=== PATIENT | male | born 1945 | race Caucasian/White ===

== ENCOUNTER 2018-12-21 13:29 | Inpatient (IN) | payer MEDICARE, MEDICAID ==
[~2018-12-21] VITALS: Ht 182.9 cm; Wt 90.1 kg
[2018-12-21 17:49] VITALS: BP 130/90
--- NOTE | 2018-12-21 18:00 | NUR ---
CORPORATE COMMUNICATIONS SPECIALIST NOTES PATIENT DIRECT ADMIT FROM Dr ROBB OFFICE 73 Y/OLD MALE ON Dx.OF CELLULITIS. PATIENT A/O X3, NO ACUTE RESPIRATORY DISTRESS, V/S TAKEN BP-130/90,P-82, R-20, O2-95 ROOM AIR, T-98.4. PATIENT AMBULATORY, SELF CARE. SKIN ASSESSMENT DONE PICTURE TAKEN, PATIENT HAS EDEMA, AND DISCOLORATION OF BLE. ORDERS TAKEN AND CARRIED OUT. SEEN BY Dr SIM. NEEDS ATTENDED AND ANTICIPATED. CALL LIGHT WITHIN TO REACH. SAFETY PRECAUTION MAINTAINED ALL THE TIME. ENDORSED ONCOMING NURSE FOR PLAN OF CARE.
[2018-12-21] MEDS ORDERED: FURO-145 PO (18:18)
[2018-12-21] MEDS ORDERED: ATEN25TA PO (18:19)
[2018-12-21] MEDS ORDERED: METH10TA2 PO (18:19)
[2018-12-21] MEDS ORDERED: AMIT25TA9 PO (18:19)
[2018-12-21] MEDS ORDERED: BACL20TA PO (18:19)
[2018-12-21] MEDS ORDERED: ALPR0.5T PO (18:19)
[2018-12-21] MEDS ORDERED: MORPHINE SULFATE INJ 4 MG/ML DISP.SYRIN IV PRN (18:30)
[2018-12-21] MEDS ORDERED: MORPHINE SULFATE INJ 2 MG/ML DISP.SYRIN IV PRN (18:30)
[2018-12-21] MEDS ORDERED: ACETAMINOPHEN 325 MG TABLET PO PRN (18:30)
[2018-12-21] MEDS ORDERED: ONDANSETRON HCL/PF 4 MG/2 ML VIAL IVP PRN (18:30)
[2018-12-21] MEDS: DOCUSATE SODIUM 100 MG CAPSULE PO SCH (18:31)
--- NOTE | 2018-12-21 19:15 | NUR ---
CHANGE OF SHIFT REPORT Patient is awake, A/O x4 appears anxious. Stable oxygen saturation on RA. Per report ARSEN swelling present upon admission, appears like a large lump, patient stated "its been there for 16 years". No PIV catheter, will place. Instruction given to use call light for assistance, verbalized understanding, per patient he is hard of hearing.
[2018-12-21 19:35] LABS: ALANINE AMINOTRANSFERASE 61 U/L (12-78); ALBUMIN 3.6 g/dL (3.4-5.0); ALKALINE PHOSPHATASE 99 U/L (46-116); ASPARTATE AMINOTRANSFERASE 90 U/L (15-37); BILIRUBIN,TOTAL 0.7 mg/dL (0.2-1.0); CALCIUM, SERUM 9.1 mg/dL (8.5-10.1); CARBON DIOXIDE 29 mmol/L (21-32); CHLORIDE 102 mmol/L (98-107); GLUCOSE 74 mg/dL (74-106); POTASSIUM 3.8 mmol/L (3.5-5.1); SODIUM SERUM 139 mmol/L (136-145); TOTAL PROTEIN, SERUM 8.1 g/dL (6.4-8.2); UREA NITROGEN, BLOOD 11 mg/dL (7-18)
[2018-12-21 19:45] LABS: C-REACTIVE PROTEIN 0.4 mg/dL (0.0-0.9); CHOLESTEROL 166 mg/dL (<200); HDL CHOLESTEROL 46 mg/dL (40-60); LDL 107 mg/dL (0-99); THYROID STIMULATING HORMONE 0.983 uIU/mL (0.358-3.74); TRIGLYCERIDES 69 mg/dL (30-150)
[2018-12-21 19:50] LABS: BASOPHILS % (AUTO) 0.3 % (0.0-2.0); EOSINOPHILS % (AUTO) 1.8 % (0.0-6.0); HEMATOCRIT 41 % (39-51); HEMOGLOBIN 13.7 g/dL (13.5-17.5); LYMPHOCYTES # (AUTO) 0.7 /CMM (0.8-4.8); LYMPHOCYTES % (AUTO) 22.6 % (20.0-44.0); MEAN CORPUSCULAR HGB CONC 34 g/dl (31.0-36.0); MEAN CORPUSCULAR VOLUME 95 fL (80-96); MONOCYTES # (AUTO) 0.4 /CMM (0.1-1.30); MONOCYTES % (AUTO) 11.7 % (2.0-12.0); NEUTROPHILS # (AUTO) 2.1 /CMM (1.8-8.9); NEUTROPHILS % (AUTO) 63.6 % (43.0-81.0); PLATELET COUNT (AUTO) 83 /CMM (150-450); RED BLOOD CELL COUNT(AUTO) 4.26 MIL/uL (4.5-6.0); WHITE BLOOD COUNT (AUTO) 3.3 K/uL (4.3-11.0)
[2018-12-21 20:00] VITALS: BP 132/76
--- NOTE | 2018-12-21 20:30 | NUR ---
MIDLINE Attempted to insert PIV by 2 RN, unsuccessful. Notified Dr. Cody, will place MIDLINE.
[2018-12-21] MEDS: ANCEF 1 GM/50 ML D5W IV SCH ×4 (20:34→23:00)
[2018-12-21 20:36] LABS: EOSINOPHILS % (MANUAL) 5 % (0-4); LYMPHOCYTES % (MANUAL) 18 % (16-48); MONOCYTES % (MANUAL) 11 % (0-11.0); NEUTROPHILS % (MANUAL) 66 (42-76)
--- NOTE | 2018-12-21 20:37 | NUR ---
MIDLINE MIDLINE inserted by LCU Narvaez. Patient tolerated procedure well. ARSEN midline G18 patent and intact.
[2018-12-21] MEDS: SENNOSIDES 8.6 MG TABLET PO SCH (21:11)
[2018-12-21] MEDS: ENOXAPARIN SODIUM 40 MG/0.4 ML DISP.SYRIN SQ SCH (21:13)
[2018-12-21] MEDS ORDERED: CT SWABBABLE VALVE TRANS SET 1 EA INFUS.SET MC ONE (21:41)
[2018-12-21] MEDS ORDERED: IOHEXOL-300 100 ML VIAL IV ONE (21:41)
[2018-12-21] MEDS ORDERED: AMITRIPTYLINE HCL 25 MG TABLET PO SCH (22:00)
--- NOTE | 2018-12-21 23:18 | NUR ---
IV ANCEF NON ADMINISTERED DUE 2300 IV antibiotic Ancef every 8 hours as scheduled, given first dose at 2033. Next dose due 04:30am.
[2018-12-22] MEDS: TEMAZEPAM 15 MG CAPSULE PO PRN ×2 (00:26→23:57)
[2018-12-22] MEDS: CARISOPRODOL 350 MG TABLET PO PRN ×4 (00:30→23:38)
[2018-12-22] MEDS: ALPRAZOLAM 0.5 MG TABLET PO PRN ×3 (00:30→23:57)
[2018-12-22] MEDS: ANCEF 1 GM/50 ML D5W IV SCH ×6 (04:51→21:02)
--- NOTE | 2018-12-22 06:07 | NUR ---
END OF SHIFT REPORT Patient in bed, stable oxygen saturation on RA, denies SOB. Ambulates independently, denies dizziness. Anxious at times, controlled with PRN Alprazolam. BLE cellulitis, BLE neg for DVT. For wound consult. ARSEN MIDLINE on IV antibiotic as scheduled. Afebrile, VSS. Slept well with PRN Restoril. Urine specimen, MRSA nares test send to lab. CT ABD/PELVIS result pending. Patient is taking Methadone outside hosp. Need to verification from the clinic before administration, Clinic not open at this time. Will endorse to oncoming RN.
[2018-12-22 06:47] LABS: APPEARANCE,URINE CLEAR (CLEAR); BILIRUBIN,URINE NEGATIVE (NEGATIVE); BLOOD, URINE NEGATIVE Ery/uL (NEGATIVE); COLOR,URINE YELLOW (YELLOW); KETONES,URINE NEGATIVE (NEGATIVE); LEUKOCYTE ESTERASE ,URINE NEGATIVE (NEGATIVE); NITRITE, URINE NEGATIVE (NEGATIVE); PROTEIN,URINE NEGATIVE (NEGATIVE); UGLUCOSE NEGATIVE (NEGATIVE)
[2018-12-22 06:54] LABS: BACTERIA,URINE Rare /HPF (None Seen); RBC,URINE 0-2 /HPF (0-2); SQUAMOUS EPITHELIAL CELL,UR Rare /HPF (None Seen); WBC,URINE 0-2 /HPF (0-3)
[2018-12-22 07:21] LABS: BASOPHILS % (AUTO) 0.6 % (0.0-2.0); HEMATOCRIT 41 % (39-51); HEMOGLOBIN 13.7 g/dL (13.5-17.5); LYMPHOCYTES # (AUTO) 2.3 /CMM (0.8-4.8); LYMPHOCYTES % (AUTO) 41.1 % (20.0-44.0); MEAN CORPUSCULAR HGB CONC 33 g/dl (31.0-36.0); MEAN CORPUSCULAR VOLUME 95 fL (80-96); MONOCYTES # (AUTO) 0.6 /CMM (0.1-1.30); MONOCYTES % (AUTO) 11.1 % (2.0-12.0); NEUTROPHILS # (AUTO) 2.4 /CMM (1.8-8.9); NEUTROPHILS % (AUTO) 43.2 % (43.0-81.0); PLATELET COUNT (AUTO) 98 /CMM (150-450); RED BLOOD CELL COUNT(AUTO) 4.31 MIL/uL (4.5-6.0); WHITE BLOOD COUNT (AUTO) 5.6 K/uL (4.3-11.0)
[2018-12-22 07:23] LABS: CALCIUM, SERUM 9.1 mg/dL (8.5-10.1); CARBON DIOXIDE 29 mmol/L (21-32); CHLORIDE 102 mmol/L (98-107); GLUCOSE 78 mg/dL (74-106); POTASSIUM 3.4 mmol/L (3.5-5.1); SODIUM SERUM 139 mmol/L (136-145); UREA NITROGEN, BLOOD 13 mg/dL (7-18)
--- NOTE | 2018-12-22 07:30 | NUR ---
RN NOTES PATIENT RECEIVED AWAKE ALERT AND VERBALLY RESPONSIVE, ABLE TO MAKE NEEDS KNOWN. RESPIRATIONS EVEN AND UNLABORED, PT WITH CHRONIC PAIN AND REQUESTING TO CALL [facility] FOR VERIFICATION OF DOSE, WILL FOLLOW UP. PT WITH ARSEN MIDLINE, PATENT AND INTACT NO REDNESS OR INFILTRATION NOTED ,NOTED WITH LARGE LUMP PT STATES "MY DOCTOR KNOWS ABOUT IT ALREADY" WILL CONTINUE TO FOLLOW UP. KEPT CLEAN DRY AND COMFORTABLE, CALL LIGHT WITHIN EASY REACH
[2018-12-22] MEDS: PANTOPRAZOLE 40 MG TABLET.DR PO SCH (07:47)
[2018-12-22 08:00] VITALS: BP 133/99
--- NOTE | 2018-12-22 08:15 | NUR ---
RN NOTES/[facility] FAXED RELEASE OF INFORMATION CONSENT TO [facility] WILL AWAIT VERIFICATION OF DOSE
[2018-12-22] MEDS: ATENOLOL 25 MG TABLET PO SCH ×2 (08:21→16:25)
[2018-12-22] MEDS: DOCUSATE SODIUM 100 MG CAPSULE PO SCH ×2 (08:22→16:09)
[2018-12-22] MEDS ORDERED: FUROSEMIDE 20 MG TABLET PO SCH (09:00)
--- NOTE | 2018-12-22 09:44 | NUR ---
RN NOTES/[facility] DO[facility] CALLED [facility] TO VERIFY DOSE, PER COUNSELOR CECILIO, WILL FAX VERIFIED DOSE
--- NOTE | 2018-12-22 11:03 | NUR ---
WOUND CARE CONSULT: PT PRESENTS WITH SWELLING OF LOWER EXTREMITIES AND HUGE AREA OF SWELLING ON RT UPPER ARM, PRESENT ON ADMISSION. PT STATES RT ARM SWELLING IS FROM A FOOTBALL INJURY. PT IS AMBULATORY AND CONTINENT. WILL SEE PRN. DEFER TO MD FOR SWELLING.
[2018-12-22] MEDS: METHADONE HCL 10 MG TABLET PO SCH (11:47)
[2018-12-22] MEDS ORDERED: POTASSIUM CHLORIDE 20 MEQ TAB.PRT.SR PO SCH (12:00)
[2018-12-22] MEDS: FUROSEMIDE 40 MG/4 ML VIAL IV SCH (13:35)
[2018-12-22 16:00] VITALS: BP 154/83
--- NOTE | 2018-12-22 18:39 | NUR ---
RN NOTES PATIENT AWAKE ALERT AND VERBALLY RESPONSIVE, ABLE TO MAKE NEEDS KNOWN. RESPIRATIONS EVEN AND UNLABORED, PT WITH CHRONIC PAIN AND ON METH[facility]ONE DOSING COMFIRMED WITH [facility]. PT WITH ARSEN MIDLINE, PATENT AND INTACT NO REDNESS OR INFILTRATION NOTED ,NOTED WITH LARGE LUMP PT STATES "MY DOCTOR KNOWS ABOUT IT ALREADY" ASKED DR. SIM AND MD IS AWARE, "OLD INJURY" CONTINUE TO MONITOR. PT REQUESTED TO HAVE 1MG OF XANAX Q12H PRN TAKEN AT HOME NOTIFIED MD AND STATES TO CONTINUE CURRENT DOSING. KEPT CLEAN DRY AND COMFORTABLE, CALL LIGHT WITHIN EASY REACH, WILL CONTINUE TO MONITOR AND ENDORSE TO NEXT SHIFT FOR CONTINUITY OF CARE
--- NOTE | 2018-12-22 19:15 | NUR ---
MS TEE INITIAL NOTES RECEIVED REPORT FROM AM NURSE GARCIA AND SEEN PT IN BED SITTING WHILE WATCHING TV. MIDLINE ON HIS RIGHT UPPER ARM NOTED . NO IVF INFUSING AT THIS TIME. PT DENIES ANY DISCOMFORT AT THIS TIME. BLE STILL SWOLLEN AND CELLULITIS NOTED. ENCOURAGE HIM TO ELEVATED HIS BLE ON PILLOWS AND EXPLAINED TO HIM THE IMPORTANCE OF IT AND PT UNDERSTOOD WELL. KEPT HIM WARM AND COMFORTABLE AT ALL TIMES. PLACE CALL LIGHT AT REACH. WILL CONTINUE MONITORING.
[2018-12-22 20:23] VITALS: BP 153/81
[2018-12-22 20:32] VITALS: BP 153/81
[2018-12-22] MEDS: ENOXAPARIN SODIUM 40 MG/0.4 ML DISP.SYRIN SQ SCH (21:55)
[2018-12-22] MEDS: SENNOSIDES 8.6 MG TABLET PO SCH (21:59)
--- NOTE | 2018-12-22 23:58 | NUR ---
ms wai notes pt called and asking for sleep medication and his anxiety meds to help him relax. educated patient for possible side effect and pt understood well and saying he's been taking his meds for a long time. will continue monitoring.
--- NOTE | 2018-12-23 02:00 | NUR ---
ms wai notes pt seen lying in bed resting no signs of any distress noted. will continue monitoring. place call light at reach.
--- NOTE | 2018-12-23 06:02 | NUR ---
ms wai notes pt called and saying he wants his methadone meds but i spoke to him that his meds due until 9 am. Ancef infusing at this time on his right upper midline. he stated he can have his anxiety medication . pt respiration even and non-labored seems he's crying and noted his both hands mild shaking and he's stated he's feel like this if he's getting anxiety attack. denies any pain .
[2018-12-23] MEDS: ALPRAZOLAM 0.5 MG TABLET PO PRN ×2 (06:19→18:20)
[2018-12-23] MEDS: PANTOPRAZOLE 40 MG TABLET.DR PO SCH (06:22)
[2018-12-23] MEDS: ANCEF 1 GM/50 ML D5W IV SCH ×6 (06:23→20:36)
--- NOTE | 2018-12-23 07:30 | NUR ---
MS RN RECEIVED ON BED,AWAKE,ALERT,ORIENTEDX4, NOT IN ANY FORM OF DISTRESS, RESPIRATIONS EVEN AND UNLABORED,NO SOB NOTED, LUNGS ARE CLEAR,ABDOMEN SOFT,POSITIVE BOWEL SOUNDS,DENIES PAIN AT THIS TIME WILL MONITOR PATIENT, NOTED TO HAVE MASS AT RIGHT UPPER ARM, WILL MONITOR PATIENT'S CONDITION.
--- NOTE | 2018-12-23 07:30 | NUR ---
MSRN RECEIVED ON BED, AWAKE,ALERT,ORIENTED X4,NOT IN ANY FORM OF DISTRESS, RESPIRATIONS EVEN AND UNLABORED,NO SOB NOTED, LUNGS ARE CLEAR,ABDOMEN SOFT,POSITIVE BOWEL SOUNDS,DENIES PAIN AT THIS TIME, WILL MONITOR PATIENT'S CONDITION.
[2018-12-23 07:32] LABS: BASOPHILS % (AUTO) 0.4 % (0.0-2.0); EOSINOPHILS % (AUTO) 2.4 % (0.0-6.0); HEMATOCRIT 40 % (39-51); HEMOGLOBIN 13.5 g/dL (13.5-17.5); LYMPHOCYTES % (AUTO) 35.3 % (20.0-44.0); MEAN CORPUSCULAR HGB CONC 34 g/dl (31.0-36.0); MEAN CORPUSCULAR VOLUME 94 fL (80-96); MONOCYTES # (AUTO) 0.7 /CMM (0.1-1.30); MONOCYTES % (AUTO) 12.6 % (2.0-12.0); NEUTROPHILS # (AUTO) 2.7 /CMM (1.8-8.9); NEUTROPHILS % (AUTO) 49.3 % (43.0-81.0); PLATELET COUNT (AUTO) 83 /CMM (150-450); RED BLOOD CELL COUNT(AUTO) 4.26 MIL/uL (4.5-6.0); WHITE BLOOD COUNT (AUTO) 5.6 K/uL (4.3-11.0)
--- NOTE | 2018-12-23 07:32 | NUR ---
MS LINE INSTALLER REPAIRER CLOSING NOTES PT REMAINS AWAKE SITTING ON HIS BED WATCHING TV AT THIS TIME, WITHOUT ANY DISTRESS OR ANY DISCOMFORT NOTED. ALL DUE MEDS GIVEN AND ALL NEEDS MET. STABLE JUSTINE THE NIGHT . KEPT HIM WARM AND COMFORTABLE AT ALL TIMES. ENDORSE TO AM NURSE FOR CONTINUITY OF CARE. PLACE CALL LIGHT AT REACH.
[2018-12-23 07:38] LABS: CALCIUM, SERUM 8.5 mg/dL (8.5-10.1); CARBON DIOXIDE 29 mmol/L (21-32); CHLORIDE 100 mmol/L (98-107); GLUCOSE 79 mg/dL (74-106); MAGNESIUM 1.9 mg/dL (1.8-2.4); POTASSIUM 3.5 mmol/L (3.5-5.1); SODIUM SERUM 138 mmol/L (136-145); UREA NITROGEN, BLOOD 13 mg/dL (7-18)
[2018-12-23 08:00] VITALS: BP 132/91
[2018-12-23] MEDS: DOCUSATE SODIUM 100 MG CAPSULE PO SCH ×2 (09:00→17:53)
--- NOTE | 2018-12-23 09:00 | NUR ---
MS CALLE BREAKFAST SERVED,DUE MEDS GIVEN,TOLERATED WELL.
[2018-12-23] MEDS: ATENOLOL 25 MG TABLET PO SCH ×2 (09:14→17:54)
[2018-12-23] MEDS: FUROSEMIDE 40 MG/4 ML VIAL IV SCH (09:16)
[2018-12-23] MEDS: METHADONE HCL 10 MG TABLET PO SCH (09:16)
--- NOTE | 2018-12-23 09:20 | NUR ---
MS RN WAS SEEN BY RONEY MONTERROSO,W/ ORDERS MADE AND CARRIED OUT.
[2018-12-23] MEDS ORDERED: POTASSIUM CHLORIDE 10 MEQ TABLET.SA PO ONE (09:30)
[2018-12-23 16:00] VITALS: BP 138/94
--- NOTE | 2018-12-23 18:25 | NUR ---
MS RN PATIENT VERY ANXIOUS,GAVE XANAX PO AT THIS TIME.
--- NOTE | 2018-12-23 19:42 | NUR ---
RECEIVED PT WALKING IN THE ROOM. SEEMS ANXIOUS AND AGITATED. BREATHING EVENLY. NO SOB.. REQUESTING FOR ALL MILENA OF MEDS. EXPLAINED TO THE PT AND MEDS WILL BE GIVEN ORDERED AND WHEN IT'S DUE FOR SAFETY . BLE STILL WITH REDNESS AND MINIMAL SWELLING. FALL PRECAUTION REVIEWED W/ THE PT. NEEDS ATTENDED . BED LOW LOCKED .CALL LIGHT WITHIN REACH. WILL CONT TO MONITOR ,
[2018-12-23 20:00] VITALS: BP 159/104
--- NOTE | 2018-12-23 20:36 | NUR ---
tylenol given as ordered for c/o back and shoulder pain. will cont to monitor ,
[2018-12-23] MEDS: ENOXAPARIN SODIUM 40 MG/0.4 ML DISP.SYRIN SQ SCH (20:37)
[2018-12-23 20:53] VITALS: BP 155/87
[2018-12-23] MEDS: SENNOSIDES 8.6 MG TABLET PO SCH (21:43)
--- NOTE | 2018-12-23 21:47 | NUR ---
PT REFUSED HIS SENNA . REPORTED HE HAD EPISODES OF LOOSE BM DURING THE DAY. PT WAS ADVISED TO CALL THE NURSE BEFORE FLUSHING THE TOILET . PER HIM HE HASN'T HAD ANY EPISODE DURING ACCESS SERVICES REPRESENTATIVE YET. WILL CONT TO MONITOR ,
--- NOTE | 2018-12-23 22:03 | NUR ---
PER IT SECURITY MANAGER PT HAD AN EPISODE OF FORMED STOOL . NO DIARRHEA,. WILL CONT TO MONITOR ,
--- NOTE | 2018-12-23 23:09 | NUR ---
PT REMAINED STABLE W/ NO ACUTE EVENT. REPORT GIVEN TO NARAYAN FOR BETTINA.
[2018-12-24] MEDS: ALPRAZOLAM 0.5 MG TABLET PO PRN ×2 (00:22→10:59)
[2018-12-24] MEDS: TEMAZEPAM 15 MG CAPSULE PO PRN ×2 (00:22→22:16)
[2018-12-24] MEDS: CARISOPRODOL 350 MG TABLET PO PRN ×3 (00:22→21:13)
--- NOTE | 2018-12-24 00:22 | NUR ---
TEE NOTES PT CALLED AND ASKING FOR HIS SOME, RESTORIL AND HIS XANAX. I SPOKE TO HIM THAT I CAN GIVE IT MAYBE 30 MINUTES A PART BUT PATIENT INSISTING THAT HE WANTS ALL TOGETHER TO HELP HIM SLEEP AND RELAX. PATIENT AWARE OF POSSIBLE SIDE EFFECT AND PT STATED I KNOW MY MEDS AND I'M TAKING THAT FOR A LONG TIME. SAFETY PRECAUTION APPLIED AND PLACE CALL LIGHT AT REACH. Addendum: 12/24/18 at 0246 by SHWETA AC LVN SOMA TABLET NOT SOME
[2018-12-24] MEDS: ANCEF 1 GM/50 ML D5W IV SCH ×6 (05:12→20:52)
[2018-12-24] MEDS: PANTOPRAZOLE 40 MG TABLET.DR PO SCH (06:19)
[2018-12-24 07:00] LABS: BASOPHILS % (AUTO) 0.6 % (0.0-2.0); EOSINOPHILS % (AUTO) 1.8 % (0.0-6.0); HEMATOCRIT 41 % (39-51); LYMPHOCYTES % (AUTO) 31.2 % (20.0-44.0); MEAN CORPUSCULAR HGB CONC 34 g/dl (31.0-36.0); MEAN CORPUSCULAR VOLUME 94 fL (80-96); MONOCYTES # (AUTO) 0.9 /CMM (0.1-1.30); MONOCYTES % (AUTO) 13.7 % (2.0-12.0); NEUTROPHILS # (AUTO) 3.4 /CMM (1.8-8.9); NEUTROPHILS % (AUTO) 52.7 % (43.0-81.0); PLATELET COUNT (AUTO) 110 /CMM (150-450); RED BLOOD CELL COUNT(AUTO) 4.36 MIL/uL (4.5-6.0); WHITE BLOOD COUNT (AUTO) 6.4 K/uL (4.3-11.0)
[2018-12-24 07:26] LABS: CALCIUM, SERUM 8.8 mg/dL (8.5-10.1); CARBON DIOXIDE 25 mmol/L (21-32); CHLORIDE 98 mmol/L (98-107); CREATININE 1.1 mg/dL (0.6-1.3); GLUCOSE 85 mg/dL (74-106); POTASSIUM 5.7 mmol/L (3.5-5.1); SODIUM SERUM 133 mmol/L (136-145); UREA NITROGEN, BLOOD 16 mg/dL (7-18)
--- NOTE | 2018-12-24 07:30 | NUR ---
ms rn received on bed, awake,alert,oriented x4,not in any form of distress,respirations even and unlabored,no sob noted, lungs are clear,abdomen soft,positive bowel sounds,denies pain at this time, will monitor patient's condition.
--- NOTE | 2018-12-24 07:30 | NUR ---
MS CURRICULUM DIRECTOR CLOSING NOTES PT AWAKE AND ALERT LYING IN BED WITH NO SIGNS OF ANY DISTRESS NOTED. ROUTINE MED GIVEN AND ALL NEEDS MET. PT ASKING FOR HIS METHADONE I TOLD THE TIME AND HE STATED OK. STABLE JUSTINE THE NIGHT . KEPT HIM COMFORTABLE AT ALL TIMES. ENDORSE TO AM NURSE. CALL LIGHT AT REACH.
[2018-12-24 08:42] VITALS: BP 125/69
[2018-12-24] MEDS: DOCUSATE SODIUM 100 MG CAPSULE PO SCH ×2 (09:00→17:00)
--- NOTE | 2018-12-24 09:00 | NUR ---
ms pereira breakfast served,due meds given,tolerated well.
[2018-12-24] MEDS: FUROSEMIDE 40 MG/4 ML VIAL IV SCH (09:35)
[2018-12-24] MEDS: METHADONE HCL 10 MG TABLET PO SCH (09:36)
[2018-12-24] MEDS: ATENOLOL 25 MG TABLET PO SCH ×2 (09:36→17:00)
--- NOTE | 2018-12-24 12:00 | NUR ---
ms rn was seen by dr. lynne w/ orders made and carried out.
[2018-12-24] MEDS ORDERED: SODIUM POLYSTYRENE SULF. PWD 15 GM UDC PO ONE (12:30)
[2018-12-24] MEDS ORDERED: methylPREDNISolone SOD SUCC 125 MG/2ML VIAL IV ONE (12:30)
[2018-12-24] MEDS: MECLIZINE HCL 12.5 MG TABLET PO SCH ×2 (13:59→21:12)
[2018-12-24 16:06] VITALS: BP 120/79
--- NOTE | 2018-12-24 19:00 | NUR ---
MS RN A/O X 3,STABLE, RESPIRATIONS EVEN AND UNLABORED, SAFETY MEASURES IN PLACE. WILL CONTINUE TO MONITOR
[2018-12-24 20:00] VITALS: BP 133/82
[2018-12-24 20:01] VITALS: BP 146/78
[2018-12-24] MEDS: ENOXAPARIN SODIUM 40 MG/0.4 ML DISP.SYRIN SQ SCH (21:13)
[2018-12-24] MEDS: SENNOSIDES 8.6 MG TABLET PO SCH (21:20)
[2018-12-25] MEDS: ALPRAZOLAM 0.5 MG TABLET PO PRN ×2 (00:11→08:22)
[2018-12-25] MEDS: ANCEF 1 GM/50 ML D5W IV SCH ×4 (04:16→13:16)
[2018-12-25] MEDS: CARISOPRODOL 350 MG TABLET PO PRN ×2 (04:19→08:24)
[2018-12-25] MEDS: MECLIZINE HCL 12.5 MG TABLET PO SCH ×2 (05:00→13:00)
--- NOTE | 2018-12-25 05:40 | NUR ---
Meclizine refused med due at 0500 am despite explaining risks and benefits offered 3 times still refused.
--- NOTE | 2018-12-25 06:16 | NUR ---
MS RN ASLEEP AND EASILY AWAKEN, TOLERATING ROOM AIR 98%. NO C/O OF PAIN AT THIS TIME. RESPIRATION EVEN AND UNLABORED, KEPT CLEAN AND DRY AND COMFORTABLE. NEEDS ATTENDED AND ANTICIPATED, NURSING CARE RENDERED, OFFLOAD HEELS AND ELBOWS. SAFETY MEASURES AT ALL TIMES. ENDORSE TO THE NEXT SHIFT.
--- NOTE | 2018-12-25 07:10 | NUR ---
RN OPENING NOTES RECEIVED PATIENT IN BED ASLEEP, BUT EASILY AROUSABLE. ALERT AND ORIENTED X4. AWARE OF THE DC PLAN TODAY. NO COMPLAINS OF ANY PAIN OR SOB AT THIS TIME. HAS A RIGHT UPPER ARM MIDLINE, SALINE LOCKED. HAS A CT OF RUE WITH AND WITHOUT CONTRAST. PENDING TO SIGN THE CONSENT FORM. BED LOCKED AND IN LOWEST POSITION. CALL LIGHT WITHIN REACH. WILL CONTINUE TO MONITOR PATIENT
[2018-12-25 08:10] VITALS: BP 129/76
[2018-12-25] MEDS: DOCUSATE SODIUM 100 MG CAPSULE PO SCH ×2 (08:22→16:12)
[2018-12-25] MEDS: PANTOPRAZOLE 40 MG TABLET.DR PO SCH (08:22)
[2018-12-25] MEDS: METHADONE HCL 10 MG TABLET PO SCH (08:27)
[2018-12-25] MEDS: ATENOLOL 25 MG TABLET PO SCH ×4 (09:00→16:14)
--- NOTE | 2018-12-25 09:45 | NUR ---
RN NOTES PATIENT REFUSED HIS ATENOLOL. STATES HE DOES NOT NEED IT RIGHT NOW. EDUCATED PATIENT WHAT THIS MEDICATION IS FOR. STILL REFUSED
--- NOTE | 2018-12-25 10:26 | NUR ---
RN NOTES PATIENT WILL HAVE A CT OF HIS RUE WITH AND WITHOUT CONTRAST. CONSENT FORM HAS BEEN SIGNED. RADIOLOGY DEPT REQUESTED TO DO THE CT IN THE AFTERNOON Addendum: 12/25/18 at 1028 by VAIBHAV RIVERA RN PATIENT REQUESTED TO DO CT IN THE AFTERNOON. RADIOLOGY DEPT REQUESTED TO INSERT ANOTHER IV LINE ON THE PATIENT'S LEFT ARM
[2018-12-25] MEDS ORDERED: IOHEXOL-300 100 ML VIAL IV ONE (14:24)
[2018-12-25] MEDS ORDERED: CT SWABBABLE VALVE TRANS SET 1 EA INFUS.SET MC ONE (14:24)
[2018-12-25] MEDS ORDERED: IV NS 0.9% 250 ML IV ONE (14:25)
--- NOTE | 2018-12-25 14:30 | NUR ---
RN NOTES PATIENT LEFT FOR CT SCAN OF THE RIGHT UPPER ARM EXTREMITY. SUMMER NANNY INSERTED AN IV ON BEDSIDE, ON THE OPPOSITE ARM (LEFT).
--- NOTE | 2018-12-25 15:03 | NUR ---
RN NOTES PATIENT CAME BACK FROM CT. STABLE VSS
--- NOTE | 2018-12-25 15:45 | NUR ---
RN NOTES PATIENT REQUESTED TO REMOVED THE IV FROM THE LEFT WRIST #22. HE SAID IT IS IRRITATING HIS SKIN.
[2018-12-25 16:14] VITALS: BP 150/110
--- NOTE | 2018-12-25 16:34 | NUR ---
RN NOTES PATIENT REFUSED THE ATENOLO AGAIN. HIS BP THIS AFTERNOON WAS 150/110. EDUCATED THE PATIENT THAT THIS CAN HELP LOWER HIS BP. HE INSISTED THAT HE CAN JUST RELAX AND HIS BLOOD PRESSURE WILL GO DOWN. WILL RECHECK BP PATIENT WILL BE PICKED UP BY HIS CAREGIVER AT 1700, PER STRAWBERRY GROWER
--- NOTE | 2018-12-25 19:22 | NUR ---
MIXER WHIPPED TOPPING NOTE PATIENT D/C TO HOME. CAREGIVER PICKED HIM UP. LEFT VIA WHEELCHAIR. VSS. EXIT CARE DONE. BELONGINGS LIST WAS NOT IN PATIENT'S CHART AND HAD TO SIGN A NEW PAPER. PATIENT STATES HE HAS EVERYTHING - HE LEFT WITH HIS CELLPHONE. NO COMPLAINS OF ANY PAIN OR SOB.
== END 2018-12-25 19:20 | disposition home health service (06) | DRG 603 ==
LOC: MED 16:43
PROVIDERS: ADMIT Legal Medicine; ATTEND Legal Medicine
PROC: 05H533Z Insertion of Infusion Device into Right Subclavian Vein, Percutaneous Approach (ICD-10-PCS; principal; 2018-12-21)
DX: L03.115 Cellulitis of right lower limb (principal); L03.116 Cellulitis of left lower limb; G89.4 Chronic pain syndrome; I10 Essential (primary) hypertension; I87.8 Other specified disorders of veins; J44.9 Chronic obstructive pulmonary disease, unspecified; K21.9 Gastro-esophageal reflux disease without esophagitis; F03.90 Unspecified dementia, unspecified severity, without behavioral disturbance, psychotic disturbance, mood disturbance, and anxiety; Z79.891 Long term (current) use of opiate analgesic; R22.31 Localized swelling, mass and lump, right upper limb; K80.20 Calculus of gallbladder without cholecystitis without obstruction; K74.60 Unspecified cirrhosis of liver; R91.8 Other nonspecific abnormal finding of lung field
CPT/HCPCS: 36415; 36569; 70470-TC; 71045-TC; 71250-TC; 73202-TC; 80048-TC; 80053-TC; 80061-TC; 81000-TC; 83735-TC; 84443-TC; 85025-TC; 85652-TC; 86140-TC; 87040-TC; 87081-TC; 87086-TC; 93307-TC; 93970-TC; 97116-TC; 97530-TC; G0378; J0690; J1650; J1940; J2930; J7050; J7060; J8597; Q9967

== ENCOUNTER 2018-12-28 00:27 | Inpatient (IN) | payer MEDICARE, MEDICAID ==
[~2018-12-28] VITALS: Ht 185.4 cm; Wt 82.1 kg
[~2018-12-28 00:27] MED LIST: ALPR0.5T PO; AMIT25TA9 PO; ATEN25TA PO; BACL20TA PO; FURO-145 PO; METH10TA2 PO
--- NOTE | 2018-12-28 01:10 | NUR ---
BIB AMBULANCE. PER CG HE IS ON METHADONE AND MIGHT HAVE OVER DOSED ON IT. PT REPORTED "I HAD A DREAM AND FELT LIKE I'M DYING. VSS. PLACED ON A MONITOR , WILL CONT TO MONITOR,
[2018-12-28] MEDS ORDERED: IV NS 0.9% 1,000 ML BAG IV ONE (01:30)
--- NOTE | 2018-12-28 01:37 | NUR ---
REJ 20G WAS STARTED BY CHARGE NURSE WITH MD'S APPROVAL. NS ADMINISTRED.
[2018-12-28 01:41] LABS: BASOPHILS % (AUTO) 0.6 % (0.0-2.0); EOSINOPHILS % (AUTO) 3.3 % (0.0-6.0); HEMATOCRIT 42 % (39-51); HEMOGLOBIN 14.3 g/dL (13.5-17.5); LYMPHOCYTES # (AUTO) 1.2 /CMM (0.8-4.8); LYMPHOCYTES % (AUTO) 21.7 % (20.0-44.0); MEAN CORPUSCULAR HGB CONC 34 g/dl (31.0-36.0); MEAN CORPUSCULAR VOLUME 95 fL (80-96); MONOCYTES # (AUTO) 0.8 /CMM (0.1-1.30); MONOCYTES % (AUTO) 14.7 % (2.0-12.0); NEUTROPHILS # (AUTO) 3.3 /CMM (1.8-8.9); NEUTROPHILS % (AUTO) 59.7 % (43.0-81.0); PLATELET COUNT (AUTO) 105 /CMM (150-450); RED BLOOD CELL COUNT(AUTO) 4.45 MIL/uL (4.5-6.0); WHITE BLOOD COUNT (AUTO) 5.5 K/uL (4.3-11.0)
[2018-12-28 01:52] LABS: CALCIUM, SERUM 9.3 mg/dL (8.5-10.1); CARBON DIOXIDE 28 mmol/L (21-32); CHLORIDE 102 mmol/L (98-107); CREATININE 1.4 mg/dL (0.6-1.3); GLUCOSE 109 mg/dL (74-106); POTASSIUM 3.9 mmol/L (3.5-5.1); SODIUM SERUM 140 mmol/L (136-145); UREA NITROGEN, BLOOD 36 mg/dL (7-18)
[2018-12-28 01:58] LABS: ALANINE AMINOTRANSFERASE 134 U/L (12-78); ALBUMIN 3.6 g/dL (3.4-5.0); ALKALINE PHOSPHATASE 95 U/L (46-116); ASPARTATE AMINOTRANSFERASE 245 U/L (15-37); BILIRUBIN,DIRECT 0.2 mg/dL (0.0-0.2); BILIRUBIN,TOTAL 0.6 mg/dL (0.2-1.0); TOTAL PROTEIN, SERUM 7.9 g/dL (6.4-8.2)
[2018-12-28 01:59] LABS: ACETAMINOPHEN 0 ug/ml (10-30); ALCOHOL, BLOOD < 3 mg/dL (0-0); SALICYLATE 0.7 mg/dL (2.8-20.0)
[2018-12-28 02:24] LABS: THYROID STIMULATING HORMONE 1.309 uIU/mL (0.358-3.74)
[2018-12-28 02:26] LABS: SERUM AMMONIA 2 umol/L (11-32)
--- NOTE | 2018-12-28 02:53 | NUR ---
CALLED [facility] FOR X-RAY READ.
--- NOTE | 2018-12-28 03:45 | NUR ---
US TECH AT THE BED SIDE
--- NOTE | 2018-12-28 04:05 | NUR ---
IN BED AWAKE AND RESPONSIVE. KEEPS ON ASKING TO BE D/C'D AND GO HOME. VSS. WILL CONT TO MONITOR ,
--- NOTE | 2018-12-28 04:26 | NUR ---
NURSING SUP CALLED PT GOING TO [phone].
--- NOTE | 2018-12-28 06:03 | NUR ---
REPORT GIVEN TO TAN CALLE.
[2018-12-28] MEDS ORDERED: MAG HYDROX/AL HYDROX/SIMETH 30 ML UDC PO PRN (06:30)
[2018-12-28] MEDS ORDERED: ZOLPIDEM TARTRATE 5 MG TABLET PO PRN (06:30)
[2018-12-28] MEDS ORDERED: MAGNESIUM HYDROXIDE 30 ML UDC PO PRN (06:30)
[2018-12-28] MEDS ORDERED: ONDANSETRON HCL/PF 4 MG/2 ML VIAL IVP PRN (06:30)
[2018-12-28] MEDS ORDERED: ACETAMINOPHEN 325 MG TABLET PO PRN (06:30)
[2018-12-28] MEDS ORDERED: Z GUARD REMEDY 2 OZ OINT TP PRN (06:30)
--- NOTE | 2018-12-28 06:31 | NUR ---
PT WAS TRANSFERRED TO [place] [id number] UNDER ACLS PROTOCOL IN STABLE CONDITION.
--- NOTE | 2018-12-28 06:36 | NUR ---
ADMISSION NOTES: RECEIVED REPORT FROM LILY CALLE. PT SOTO TO THE UNIT VIA TARAN. PT A/O X3 ON RA RESPIRATION EVEN AND UNLABORED. DENIES ANY PAIN OR DISCOMFORT AT THIS TIME. IV ON REJ G 20 PATENT AND FLUSHING WELL, ON HL. PT HAS POA NAMED JACOB AND PER REPORT WILL BRING UPDATED LIST OF HOME MEDICATIONS OF THE PT. ORIENTED PT TO UNIT POLICY AND HOURLY ROUNDING AND USE OF CALL LIGHT SYSTEM. INVENTORY OF BELONGINGS COMPLETED BY CAROLINE CHRISTINA. PT REFUSED HOSPITAL GOWN, PLACED ON TELE MONITOR NOW AFIB HR 67. VS TAKEN AND RECORDED. NOTED RIGHT BICEP/ARM MASS. PT REFUSED SKIN CHECK OF THE SACRAL AND PERINEAL AREA. GEAR SETTER AT BED SIDE WITNESS. 0640AM, EKG DONE AT BED SIDE. SAFETY PRECAUTIONS FOR FALL INITIATED, CALL LIGHT IN REACH. WILL ENDORSE TO DAY RN FOR COMPLETION OF ADMISSION.
[2018-12-28 06:44] VITALS: BP 143/71
--- NOTE | 2018-12-28 07:08 | NUR ---
RN NOTES: PT REFUSED TAKING PICTURE OF SKIN ISSUE AND REFUSED SKIN CHECK, REFUSED LAB DRAW, ZIGZAG STITCHER MADE AWARE
[2018-12-28 07:27] VITALS: BP 143/71
[2018-12-28 08:00] VITALS: BP 139/67
--- NOTE | 2018-12-28 08:00 | NUR ---
tele card lacer: notes received pt in bed awake, a/ox4. no sleepiness/drowsiness noted. pt wants to go [facility] if he doesn't get his methadone dose this morning. also pt wants to eat solid food. pt is on clear liquid diet due to ultra sound findings: acute cholecystitis, pt aware, but no c/o any pain, n/v, or any discomfort. will continue to monitor.
[2018-12-28] MEDS: ATENOLOL 25 MG TABLET PO SCH ×2 (08:23→08:29)
[2018-12-28] MEDS: FUROSEMIDE 20 MG TABLET PO SCH ×2 (08:23→08:29)
[2018-12-28 08:29] VITALS: BP 139/67
--- NOTE | 2018-12-28 08:30 | NUR ---
tele clinical staff educator: notes pt still refusing blood drawn. pt wants to get his methadone dose, stated, "i'm suppose to get my methadone dose this morning." reality orientation provided prn. updated pt condition when he was brought here in e.r., but denies none of it happened. pt however is more awake and alert now. informed pt that his meds were held due to his ams, but the doctor will evaluate you and review your medications. will continue to monitor. instructed to call for assistance.
--- NOTE | 2018-12-28 08:55 | NUR ---
m/s solar energy specialist: notes pt refused blood drawn at this time.
--- NOTE | 2018-12-28 09:15 | NUR ---
tele forestry aide: notes pt still threatening to leave [facility] if doesn't get his methadone. pt more alert now and still insisting that he didn't overdose on methadone. reality orientation provided prn. awaiting for joselyn (acnp) to see and evaluate pt. pt insisting that he a primary doctor here that sees him, but he doesn't know the name. will continue to monitor.
--- NOTE | 2018-12-28 10:25 | NUR ---
tele dry mixer: notes mel (admin from [facility]) called and informed him that pt needs to get evaluated and reviewed his medications once the doctor comes. mel is aware that pt wants to go against medical advice if he doesn't get his methadone and other medications. education provided to mel re: held meds due to altered mental status and verbalized understanding.
--- NOTE | 2018-12-28 10:50 | NUR ---
m/s shipping packer: notes mel (admin from [facility]) here at this time. mel asked staff to give him xanax 2mg po now and brought his medication with him. instructed mel that he cannot take his own medication and the 2mg of xanax is too much of a dose. pt still wants to go ama. joselyn (acnp) notified thru exchange. will monitor.
[2018-12-28] MEDS ORDERED: LORAZEPAM 0.5 MG TABLET PO ONE (11:00)
--- NOTE | 2018-12-28 11:00 | NUR ---
m/s side sawyer: notes mel (admin) here and called pt's nessa (ojhn) to speak to him, message left via voice mail. Addendum: 12/28/18 at 1247 by AFSANEH PONCE DIRECTOR DIETETICS DEPARTMENT joselyn ([facility]) called back and made aware re: wants to go ama and wants his medications with order to give ativan 0.5mg po x 1. order read back and carried out.
--- NOTE | 2018-12-28 11:30 | NUR ---
tele spinner fixer: notes pt removed his tele monitor at this time. still threatening to leave [facility] despite pt has been told the risks and consequences involving leaving against medical advice without being seen by a physician; also pt aware of gallbladder us results, but it doesn't bother him as stated. pt requesting his iv pulled out too at this time. informed him that i will call your records administrator (mel) and your hospitalist. cn aware. manoj (acnp) made aware. mel (admin) will come and pick him up.
--- NOTE | 2018-12-28 11:45 | NUR ---
tele federal law clerk: feliberto alves (acnp) notified and made aware that pt will sign ama without being seen by a physician and will have to cancel her orders as stated. cn made aware.
--- NOTE | 2018-12-28 12:00 | NUR ---
tele director cost: notes discharge [facility] form and instructions given to pt and also risks and consequences involving of leaving [facility] explained to pt and instructed him to see his primary doctor as soon as possible. pt verbalized understanding. h/l removed with tip intact with no bleeding, no swelling, and no redness noted. awaiting for harut (admin) to pick him up. pt refused d'c papers copies, stated, "i don't need them."
--- NOTE | 2018-12-28 12:30 | NUR ---
tele accounting reconciliation clerk: notes mel (admin) here to pick him up and handed all d'c papers. also given instructions to see his primary care physician as soon as possible. pt left the hospital via ambulatory at this time with all belongings.
== END 2018-12-28 12:30 | disposition left against medical advice (07) | DRG 917 ==
LOC: ER 00:29 → TELE 04:28
PROVIDERS: ADMIT Registered Nurse; ATTEND Registered Nurse
DX: T40.3X1A Poisoning by methadone, accidental (unintentional), initial encounter (principal); G92 Toxic encephalopathy; K80.00 Calculus of gallbladder with acute cholecystitis without obstruction; N17.9 Acute kidney failure, unspecified; F11.20 Opioid dependence, uncomplicated; Y92.89 Other specified places as the place of occurrence of the external cause; I13.10 Hypertensive heart and chronic kidney disease without heart failure, with stage 1 through stage 4 chronic kidney disease, or unspecified chronic kidney disease; N18.9 Chronic kidney disease, unspecified; M79.7 Fibromyalgia; J45.909 Unspecified asthma, uncomplicated; Z98.890 Other specified postprocedural states; J44.9 Chronic obstructive pulmonary disease, unspecified; K21.9 Gastro-esophageal reflux disease without esophagitis; I48.91 Unspecified atrial fibrillation; Z79.899 Other long term (current) drug therapy; G89.4 Chronic pain syndrome; I45.4 Nonspecific intraventricular block; I87.8 Other specified disorders of veins; M19.90 Unspecified osteoarthritis, unspecified site; F43.10 Post-traumatic stress disorder, unspecified; G47.9 Sleep disorder, unspecified; F32.9 Major depressive disorder, single episode, unspecified; F09 Unspecified mental disorder due to known physiological condition; I45.81 Long QT syndrome; E86.9 Volume depletion, unspecified; R74.0 Nonspecific elevation of levels of transaminase and lactic acid dehydrogenase [LDH]
CPT/HCPCS: 36415; 70450-TC; 71045-TC; 76705-TC; 80048-TC; 80076-TC; 82140-TC; 83605-TC; 83735-TC; 84443-TC; 84484-TC; 85025-TC; 85730-TC; 87040-TC; 87081-TC; G0378; G0480; J7030

== ENCOUNTER 2019-03-04 15:29 | Inpatient (IN) | payer MEDICARE, MEDICAID ==
[~2019-03-04] VITALS: Ht 185.4 cm; Wt 86.4 kg
--- NOTE | 2019-03-04 18:15 | NUR ---
MS NUT ROASTER HELPER NOTE PT ARRIVED ON MS UNIT WITH CAREGIVER. PT IS A/O X3, AFEBRILE. RESPIRATIONS ARE EVEN AND UNLABORED, NOT IN ANY ACUTE DISTRESS NOTED. PUPILS ARE REACTIVE TO LIGHT, BILATERAL HAND DYE RANGE TENDER ARE STRONG AND EQUAL. PT DENIES ANY PAIN AT THIS TIME, NO C/O SOB, N/V. ABDOMEN IS SOFT AND NONDISTENDED, BOWEL SOUNDS ARE PRESENT IN ALL 4 QUADRANTS UPON AUSCULTATION. DENIES ANY BLADDER DISCOMFORT. BLE NTOED WITH DISCOLORATION AND PITTING EDEMA +1. DR. SIM NOTIFIED OF ADMISSION. SAFETY MEASURES ARE IN PLACE. INSTRUCTED PT TO USE CALL LIGHT WHEN ASSISTNACE IS NEEDED, CALL LIGHT IS LEFT WITHIN REACH. WILL MONITOR THROUGHOUT SHIFT FOR CONTINUITY OF CARE.
[2019-03-04 19:05] VITALS: BP 148/79
--- NOTE | 2019-03-04 19:05 | NUR ---
MS RN NOTE RECEIVED PT IN BED AWAKE AND ABLE TO MAKE NEEDS KNOWN. PT A/O X3. RESPIRATIONS EVEN AND UNLABORED WITH NO S/S OF ACUTE DISTRESS OR SOB NOTED. NO COMPLAINTS OF PAIN AT THIS TIME. PT NOTED WITH BLE CELLULITIS. PT WITH RFA #22G SL PATENT AND INTACT. SAFETY MEASURES IN PLACE WITH BED IN LOWEST LOCKED POSITION WITH SIDE RAILS UP X2. CALL LIGHT WITHIN REACH. WILL CONTINUE TO MONITOR.
[2019-03-04] MEDS ORDERED: ACETAMINOPHEN 325 MG TABLET PO PRN (20:00)
[2019-03-04] MEDS ORDERED: ONDANSETRON HCL/PF 4 MG/2 ML VIAL IV PRN (20:00)
[2019-03-04 20:09] VITALS: BP 140/92
[2019-03-04 20:35] LABS: BASOPHILS % (AUTO) 0.9 % (0.0-2.0); EOSINOPHILS % (AUTO) 1.5 % (0.0-6.0); HEMATOCRIT 41 % (39-51); HEMOGLOBIN 13.7 g/dL (13.5-17.5); LYMPHOCYTES # (AUTO) 0.8 /CMM (0.8-4.8); LYMPHOCYTES % (AUTO) 22.3 % (20.0-44.0); MEAN CORPUSCULAR HGB CONC 34 g/dl (31.0-36.0); MEAN CORPUSCULAR VOLUME 95 fL (80-96); MONOCYTES # (AUTO) 0.3 /CMM (0.1-1.30); MONOCYTES % (AUTO) 9.7 % (2.0-12.0); NEUTROPHILS # (AUTO) 2.3 /CMM (1.8-8.9); NEUTROPHILS % (AUTO) 65.6 % (43.0-81.0); PLATELET COUNT (AUTO) 78 /CMM (150-450); RED BLOOD CELL COUNT(AUTO) 4.27 MIL/uL (4.5-6.0); WHITE BLOOD COUNT (AUTO) 3.5 K/uL (4.3-11.0)
[2019-03-04 21:33] LABS: BAND % (MANUAL) 17 % (0.0-5.0); EOSINOPHILS % (MANUAL) 2 % (0-4); LYMPHOCYTES % (MANUAL) 19 % (16-48); MONOCYTES % (MANUAL) 12 % (0-11.0); NEUTROPHILS % (MANUAL) 50 (42-76)
[2019-03-04 21:38] LABS: CALCIUM, SERUM 9.3 mg/dL (8.5-10.1); CARBON DIOXIDE 25 mmol/L (21-32); CHLORIDE 102 mmol/L (98-107); CREATININE 0.9 mg/dL (0.6-1.3); GLUCOSE 85 mg/dL (74-106); POTASSIUM 4.3 mmol/L (3.5-5.1); SODIUM SERUM 137 mmol/L (136-145); UREA NITROGEN, BLOOD 14 mg/dL (7-18)
[2019-03-05] MEDS: ALPRAZOLAM 1 MG TABLET PO SCH ×3 (00:19→21:47)
[2019-03-05] MEDS ORDERED: CEFAZOLIN 1 GM in IV D5W 50 ML IV SCH (01:00)
--- NOTE | 2019-03-05 02:45 | NUR ---
MS RN NOTES ANCEF IS UNAVAILABLE FROM NIGHT LOCKED BY WEIGH MACHINE OPERATOR. UNABLE TO GIVE MEDICATION.
--- NOTE | 2019-03-05 02:46 | NUR ---
MS RN NOTES CALLED ASSISTANT COUNSEL THAT ANCEF WAS NEEDED. BUFFET ATTENDANT INFORMED THAT MEDICATION IS UNAVAILABLE. CALLED PHARMACY THAT MEDICATION WAS UNAVAILABLE, PHARMACY INFORMED TO CALL ON-CALL PHARMACIST. INFORMED ASSISTANT COUNSEL. PER ASSISTANT COUNSEL ANTIBIOTICS CAN WAIT UNTIL MORNING PHARMACY COMES DUE TO NON-EMERGENCY. CHARGE NURSE NOTIFIED THROUGHOUT PROCESS.
--- NOTE | 2019-03-05 07:31 | NUR ---
MS RN NOTE PT IN BED AWAKE AND ABLE TO MAKE NEEDS KNOWN. PT A/O X3. RESPIRATIONS EVEN AND UNLABORED WITH NO S/S OF ACUTE DISTRESS OR SOB NOTED THROUGHOUT SHIFT. NO COMPLAINTS OF PAIN AT THIS TIME. PT WITH RFA #22G SL PATENT AND INTACT. SAFETY MEASURES IN PLACE WITH BED IN LOWEST LOCKED POSITION WITH SIDE RAILS UP X2. CALL LIGHT WITHIN REACH. WILL ENDORSE TO ONCOMING NURSE FOR BETTINA.
--- NOTE | 2019-03-05 07:48 | NUR ---
MS RN OPENING NOTES RECEIVED PT LAYING IN BED W/ HOB ELEVATED. PT IS A/O X3, AFEBRILE. RESPIRATIONS ARE EVEN AND UNLABORED, NOT IN ANY ACUTE DISTRESS NOTED. PT DENIES ANY PAIN AT THIS TIME, NO C/O SOB, N/V. IV SITE TO LFA INTACT, NO INFILTRATION NOTED. DRESSING KEPT CLEAN AND DRY. SAFETY MEASURES ARE IN PLACE. INSTRUCTED PT TO USE CALL LIGHT WHEN ASSISTANCE IS NEEDED, CALL LIGHT IS LEFT WITHIN REACH. WILL MONITOR THROUGHOUT SHIFT FOR CONTINUITY OF CARE.
[2019-03-05 08:00] VITALS: BP 127/75
[2019-03-05] MEDS: FUROSEMIDE 20 MG/2 ML VIAL IV SCH (08:13)
[2019-03-05] MEDS: CEFAZOLIN 1 GM in IV D5W 50 ML IV SCH ×3 (08:16→21:47)
--- NOTE | 2019-03-05 08:30 | NUR ---
MS RN NOTES-- PT WAS SEEN AND EXAMINED BY DR. SIM W/ ORDERS NOTED AND CARRIED OUT.
[2019-03-05] MEDS ORDERED: METHADONE PO SCH (09:00)
[2019-03-05] MEDS ORDERED: ENOXAPARIN SODIUM 40 MG/0.4 ML DISP.SYRIN SQ SCH (09:00)
--- NOTE | 2019-03-05 09:37 | NUR ---
WOUND CARE CONSULT: PT PRESENTS WITH DRY SKIN TO ARMS AND LEGS WITH DARK DISCOLORATION TO BILATERAL LOWER LEGS AND FEET, PRESENT ON ADMISSION. RECOMMENDATIONS MADE FOR SKIN PROTECTION AND CARE. DISCUSSED WITH NURSING STAFF. PT IS INDEPENDENT WITH BED MOBILITY. WILL SEE PRN. GUNN IN AGREEMENT WITH PLAN OF CARE.
[2019-03-05] MEDS: ATENOLOL 25 MG TABLET PO SCH ×2 (09:44→16:10)
--- NOTE | 2019-03-05 11:00 | NUR ---
MS RN NOTES-- CALLED PHARMACY, SPOKE W/ ZACHARY, RE: HARVEY. PER ZACHARY, "WILL SEND IT UP."
[2019-03-05] MEDS: CARISOPRODOL 350 MG TABLET PO PRN ×2 (12:27→16:10)
[2019-03-05] MEDS: MINERAL OIL/PETROLATUM,WHITE 120 GM JAR TP SCH (12:28)
--- NOTE | 2019-03-05 13:23 | NUR ---
Social service consult requested by Gutierrez Cody MD because of mental health concerns. SW attempted to conduct assessment but pt refused to participate and stated, �you are the third person to come in here.� Pt would like to rest. SW will return and attempt to conduct assessment at a later time.
--- NOTE | 2019-03-05 13:38 | NUR ---
MS RN NOTES-- PT ABLE TO MAKE NEEDS KNOWN, NEEDS MET AND RENDERED. PT IS NOT IN ANY APPARENT DISTRESS NOTED. WILL CONTINUE TO MONITOR.
[2019-03-05 16:00] VITALS: BP 131/86
--- NOTE | 2019-03-05 18:37 | NUR ---
MS RN CLOSING NOTES ALL DUE MEDS GIVEN, NEEDS MET AND RENDERED. PT IS A/O X3, AFEBRILE. RESPIRATIONS ARE EVEN AND UNLABORED, NOT IN ANY ACUTE DISTRESS NOTED. DENIES ANY PAIN, NO C/O SOB, N/V AT THIS TIME. IV SITE TO RAC 24G INTACT, NO INFILTRATION NOTED. DRESSING KEPT CLEAN AND DRY. YUNIEL AT BEDSIDE. REMINDED PT TO USE CALL LIGHT WHEN ASSISTANCE IS NEEDED, CALL LIGHT IS LEFT WITHIN REACH. WILL ENDORSE TO NEXT SHIFT FOR CONTINUITY OF CARE.
--- NOTE | 2019-03-05 19:10 | NUR ---
MS RN NOTE RECEIVED PT IN BED AWAKE AND ABLE TO MAKE NEEDS KNOWN. PT A/O X3. RESPIRATIONS EVEN AND UNLABORED WITH NO S/S OF ACUTE DISTRESS OR SOB NOTED. NO COMPLAINTS OF PAIN AT THIS TIME. PT NOTED WITH BLE CELLULITIS. PT ABLE TO AMBULATE. PT WITH RFA #22G SL PATENT AND INTACT WITH NO S/S OF INFILTRATION OR LEAKAGE. SAFETY MEASURES IN PLACE WITH BED IN LOWEST LOCKED POSITION WITH SIDE RAILS UP X2. CALL LIGHT WITHIN REACH. WILL CONTINUE TO MONITOR.
[2019-03-05 20:00] VITALS: BP 118/75
[2019-03-05] MEDS: AMITRIPTYLINE HCL 25 MG TABLET PO SCH (22:00)
[2019-03-06] MEDS: CARISOPRODOL 350 MG TABLET PO PRN ×4 (00:14→23:58)
[2019-03-06] MEDS: CEFAZOLIN 1 GM in IV D5W 50 ML IV SCH ×3 (04:53→20:43)
--- NOTE | 2019-03-06 06:44 | NUR ---
MS RN NOTE PT IN BED ASLEEP BUT EASILY AWOKEN VERBALLY OR BY TOUCH. PT A/O X3 AND ABLE TO MAKE NEEDS KNOWN. RESPIRATIONS EVEN AND UNLABORED WITH NO S/S OF ACUTE DISTRESS OR SOB NOTED THROUGHOUT SHIFT. NO COMPLAINTS OF PAIN AT THIS TIME. PT NOTED WITH BLE CELLULITIS. PT ABLE TO AMBULATE. PT WITH RFA #22G SL PATENT AND INTACT WITH NO S/S OF INFILTRATION OR LEAKAGE. SAFETY MEASURES IN PLACE WITH BED IN LOWEST LOCKED POSITION WITH SIDE RAILS UP X2. CALL LIGHT WITHIN REACH. WILL ENDORSE TO ONCOMING NURSE FOR BETTINA.
--- NOTE | 2019-03-06 07:55 | NUR ---
RN MS NOTES OPENING Patient remains on room air, no sob noted, patient denies pain at this time. Patient remains a/o x3, and is comfortable on his bed. left FA #22g remains patent at this time, patient able to walk and has good gait. Patient's bed at the lowest setting, call light within reach.
[2019-03-06 08:00] VITALS: BP 150/94
[2019-03-06] MEDS: ATENOLOL 25 MG TABLET PO SCH ×2 (08:04→16:21)
[2019-03-06] MEDS: ALPRAZOLAM 1 MG TABLET PO SCH ×2 (08:04→20:43)
[2019-03-06] MEDS: FUROSEMIDE 20 MG/2 ML VIAL IV SCH (08:04)
[2019-03-06] MEDS: METHADONE PO SCH (08:10)
[2019-03-06] MEDS: MINERAL OIL/PETROLATUM,WHITE 120 GM JAR TP SCH (08:14)
[2019-03-06 16:00] VITALS: BP_SYST 119; BP_SYST 150; BP_DIAS 70; BP_DIAS 94
--- NOTE | 2019-03-06 18:07 | NUR ---
RN MS CLOSING NOTES Patient remains on room air, no sob noted. A/O x3, patient denies pain at this time. Patient has good gait and is able to get up from bed to walk around comfortably. Left FA #22 remains patent at this time. Bed at the lowest setting, call light within reach, will give report to NOC RN for BETTINA bedside.
--- NOTE | 2019-03-06 19:48 | NUR ---
RN NOTES RECEIVED PATIENT AWAKE, RESTING COMFORTABLY, NO SIGNS OF ACUTE RESPIRATORY DISTRESS NOTED, SAFETY MEASURES IN PLACE, CALL LIGHT WITHIN EASY REACH, IV ACCESS ON HIS LEFT FA G#22 INTACT AND PATENT. DENIES ANY PAIN / DISCOMFORT AT THIS TIME, ALL NEEDS ATTENDED WILL CONTINUE TO MONITOR ACCORDINGLY.
[2019-03-06 20:00] VITALS: BP 134/88
[2019-03-06] MEDS: AMITRIPTYLINE HCL 25 MG TABLET PO SCH (22:00)
[2019-03-07] MEDS: CEFAZOLIN 1 GM in IV D5W 50 ML IV SCH ×3 (05:18→21:11)
[2019-03-07 06:13] LABS: BASOPHILS % (AUTO) 0.5 % (0.0-2.0); EOSINOPHILS % (AUTO) 3.6 % (0.0-6.0); HEMATOCRIT 43 % (39-51); HEMOGLOBIN 14.4 g/dL (13.5-17.5); LYMPHOCYTES # (AUTO) 1.9 /CMM (0.8-4.8); LYMPHOCYTES % (AUTO) 35.1 % (20.0-44.0); MEAN CORPUSCULAR HGB CONC 34 g/dl (31.0-36.0); MEAN CORPUSCULAR VOLUME 95 fL (80-96); MONOCYTES # (AUTO) 0.6 /CMM (0.1-1.30); MONOCYTES % (AUTO) 11.8 % (2.0-12.0); NEUTROPHILS # (AUTO) 2.7 /CMM (1.8-8.9); PLATELET COUNT (AUTO) 86 /CMM (150-450); RED BLOOD CELL COUNT(AUTO) 4.47 MIL/uL (4.5-6.0); WHITE BLOOD COUNT (AUTO) 5.5 K/uL (4.3-11.0)
[2019-03-07 06:36] LABS: CALCIUM, SERUM 9.3 mg/dL (8.5-10.1); CARBON DIOXIDE 28 mmol/L (21-32); CHLORIDE 101 mmol/L (98-107); CREATININE 1.1 mg/dL (0.6-1.3); GLUCOSE 76 mg/dL (74-106); MAGNESIUM 2.1 mg/dL (1.8-2.4); PHOSPHORUS 3.3 mg/dL (2.5-4.9); POTASSIUM 4.2 mmol/L (3.5-5.1); SODIUM SERUM 137 mmol/L (136-145); UREA NITROGEN, BLOOD 20 mg/dL (7-18)
[2019-03-07] MEDS ORDERED: KEY,NONCONTROL,TO KEEP IN PYXI 1 EA MC ONE ×3 (06:52→22:00)
--- NOTE | 2019-03-07 07:00 | NUR ---
RN NOTES METHADONE 165MG SOLUTION NOT AVAILABLE IN THE UNIT AT THIS TIME, CALLED AND SPOKE TO [facility] DEPT, THEY WILL SEND MED IN THE MORNING. WILL ENDORSE TO AM NURSE TO FOLLOW UP.
--- NOTE | 2019-03-07 07:07 | NUR ---
RN NOTES ALL NEEDS ATTENDED AND MET, PATIENT ABLE TO REST AND SLEEP, SAFETY MEASURES IN PLACE, CALL LIGHT WITHIN EASY REACH, PRUNE JUICE GIVEN AT MIDNIGHT PER PT REQUEST TO REGULATE BM. ENDORSED TO AM NURSE FOR CONTINUITY OF CARE.
--- NOTE | 2019-03-07 07:13 | NUR ---
rn ms opening notes Received patient on room air, no sob noted. patient remains a/o x3, patient denies pain at this time. Left FA #22 remains patent. Bed at the lowest setting, call light within reach, side rails up x2.
[2019-03-07] MEDS: METHADONE PO SCH (07:27)
[2019-03-07 08:00] VITALS: BP 143/73
[2019-03-07] MEDS: FUROSEMIDE 20 MG/2 ML VIAL IV SCH (08:27)
[2019-03-07] MEDS: ALPRAZOLAM 1 MG TABLET PO SCH ×2 (08:27→22:09)
[2019-03-07] MEDS: MINERAL OIL/PETROLATUM,WHITE 120 GM JAR TP SCH (08:27)
[2019-03-07] MEDS: ATENOLOL 25 MG TABLET PO SCH ×2 (08:27→16:32)
[2019-03-07 09:38] LABS: EOSINOPHILS % (MANUAL) 2 % (0-4); LYMPHOCYTES % (MANUAL) 41 % (16-48); MONOCYTES % (MANUAL) 9 % (0-11.0); NEUTROPHILS % (MANUAL) 48 (42-76)
[2019-03-07] MEDS: CARISOPRODOL 350 MG TABLET PO PRN ×2 (11:35→18:16)
--- NOTE | 2019-03-07 14:45 | NUR ---
RN NOTES Methadone 165 mg that is due tomorrow, 03/08/19 is in the narcotic locker, along with the paperwork. [place] is in the [facility]ell.
--- NOTE | 2019-03-07 15:08 | NUR ---
rn ms notes Report given to rosalee DUNBAR
--- NOTE | 2019-03-07 15:20 | NUR ---
MS RN NOTES-- RECEIVED REPORT FROM LUC STOCKTON. RECEIVED PT LAYING IN BED W/ HOB ELEVATED. PT IS A/O X3, AFEBRILE. RESPIRATIONS ARE EVEN AND UNLABORED, NOT IN ANY ACUTE DISTRESS NOTED. PT DENIES ANY PAIN AT THIS TIME, NO C/O SOB, N/V. IV SITE TO LFA INTACT, NO INFILTRATION NOTED. DRESSING KEPT CLEAN AND DRY. SAFETY MEASURES ARE IN PLACE. INSTRUCTED PT TO USE CALL LIGHT WHEN ASSISTANCE IS NEEDED, CALL LIGHT IS LEFT WITHIN REACH. WILL MONITOR THROUGHOUT SHIFT FOR CONTINUITY OF CARE.
[2019-03-07 15:28] VITALS: BP 131/78
--- NOTE | 2019-03-07 18:29 | NUR ---
MS RN CLOSING NOTES ALL DUE MEDS GIVEN, NEEDS MET AND RENDERED. PT IS A/O X3, AFEBRILE. RESPIRATIONS ARE EVEN AND UNLABORED, NOT IN ANY ACUTE DISTRESS NOTED. DENIES ANY PAIN, NO C/O SOB, N/V AT THIS TIME. IV SITE TO LFA INTACT, NO INFILTRATION NOTED. DRESSING KEPT CLEAN AND DRY. REMINDED PT TO USE CALL LIGHT WHEN ASSISTANCE IS NEEDED, CALL LIGHT IS LEFT WITHIN REACH. WILL ENDORSE TO NEXT SHIFT FOR CONTINUITY OF CARE.
--- NOTE | 2019-03-07 19:20 | NUR ---
RN NOTES RECEIVED PATIENT AWAKE, RESTING COMFORTABLY, DENIES ANY PAIN AT THIS TIME, SAFETY MEASURES IN PLACE, CALL LIGHT WITHIN EASY REACH, IV ACCESS INTACT AND PATENT, ALL NEEDS ATTENDED, WILL CONTINUE TO MONITOR ACCORDINGLY.
[2019-03-07 20:00] VITALS: BP 139/81
[2019-03-07 20:12] VITALS: BP 139/81
[2019-03-07] MEDS: AMITRIPTYLINE HCL 25 MG TABLET PO SCH (22:00)
[2019-03-08] MEDS: CARISOPRODOL 350 MG TABLET PO PRN ×2 (00:02→12:02)
[2019-03-08] MEDS: CEFAZOLIN 1 GM in IV D5W 50 ML IV SCH ×2 (05:03→13:04)
--- NOTE | 2019-03-08 06:06 | NUR ---
RN NOTES ALL NEEDS ATTENDED AND MET, ABLE TO REST AND SLEEP AT INTERVALS, IV INTACT AND PATENT, SAFETY MEASURES IN PLACE, CALL LIGHT WITHIN EASY REACH, ALL DUE MEDS GIVEN, WILL ENDORSE TO AM NURSE FOR CONTINUITY OF CARE.
[2019-03-08] MEDS ORDERED: KEY,NONCONTROL,TO KEEP IN PYXI 1 EA MC ONE (06:56)
[2019-03-08] MEDS: METHADONE PO SCH (07:01)
[2019-03-08 07:27] LABS: CARBON DIOXIDE 28 mmol/L (21-32); CHLORIDE 101 mmol/L (98-107); GLUCOSE 85 mg/dL (74-106); POTASSIUM 3.8 mmol/L (3.5-5.1); SODIUM SERUM 136 mmol/L (136-145); UREA NITROGEN, BLOOD 18 mg/dL (7-18)
[2019-03-08 07:36] LABS: BASOPHILS % (AUTO) 0.5 % (0.0-2.0); HEMATOCRIT 43 % (39-51); HEMOGLOBIN 14.6 g/dL (13.5-17.5); LYMPHOCYTES # (AUTO) 1.6 /CMM (0.8-4.8); LYMPHOCYTES % (AUTO) 33.5 % (20.0-44.0); MEAN CORPUSCULAR HGB CONC 34 g/dl (31.0-36.0); MEAN CORPUSCULAR VOLUME 95 fL (80-96); MONOCYTES # (AUTO) 0.6 /CMM (0.1-1.30); MONOCYTES % (AUTO) 11.6 % (2.0-12.0); NEUTROPHILS # (AUTO) 2.4 /CMM (1.8-8.9); NEUTROPHILS % (AUTO) 50.4 % (43.0-81.0); PLATELET COUNT (AUTO) 78 /CMM (150-450); RED BLOOD CELL COUNT(AUTO) 4.56 MIL/uL (4.5-6.0); WHITE BLOOD COUNT (AUTO) 4.8 K/uL (4.3-11.0)
--- NOTE | 2019-03-08 07:46 | NUR ---
MS RN OPENING NOTES RECEIVED PATIENT IN BED, ALERT AND AWAKE. HOB ELEVATED. NO SOB NOTED. DENIES ANY C/O OF PAIN NOR DISCOMFORT. LEFT FA # 22 INTACT AND PATENT. ABLE TO VERBALIZE NEEDS. CALL LIGHT WITHIN REACH. BED IN LOWEST POSITION.
[2019-03-08 08:58] LABS: BAND % (MANUAL) 2 % (0.0-5.0); EOSINOPHILS % (MANUAL) 1 % (0-4); LYMPHOCYTES % (MANUAL) 33 % (16-48); MONOCYTES % (MANUAL) 19 % (0-11.0); NEUTROPHILS % (MANUAL) 45 (42-76)
[2019-03-08 09:07] VITALS: BP 117/56
[2019-03-08] MEDS: ATENOLOL 25 MG TABLET PO SCH (09:07)
[2019-03-08] MEDS: ALPRAZOLAM 1 MG TABLET PO SCH (09:07)
[2019-03-08] MEDS: FUROSEMIDE 20 MG/2 ML VIAL IV SCH (09:07)
[2019-03-08] MEDS: MINERAL OIL/PETROLATUM,WHITE 120 GM JAR TP SCH (09:10)
--- NOTE | 2019-03-08 15:58 | NUR ---
MS VULCANIZER OPERATOR/CLOSING NOTES PATIENT ALERT AND AWAKE ORIENTED X4. NO SOB OBSERVED DURING THE SHIFT. DENIES ANY C/O PAIN NOR DISCOMFORT. LAST DOSE OF IV ATB GIVEN ORDERED, MARQUITA WELL WITHOUT ASE OBSERVED.SALINE LOCK REMOVED WITH CATHETER TIP IN PLACE WITH GAUZE DRESSING IN PLACE. ALL BELONGINGS ACCOUNTED FOR. PATIENT REFUSED PICTURES TO BE TAKEN OF UPPER AND LOWER EXTREMITIES. DISCHARGE INSTRUCTIONS AND DISCHARGE PACKET GIVEN TO PATIENT AND CAREGIVER. PER CAREGIVER, COLTON, "I KNOW THE MEDS AND I'M FAMILIAR." PATIENT LEFT IN STABLE CONDITION VIA PRIVATE CARE.
== END 2019-03-08 16:00 | disposition home or self-care (01) | DRG 300 ==
LOC: MED 15:29 → UNDOADMIN 15:29 → MED 17:55
PROVIDERS: ADMIT Legal Medicine; ATTEND Legal Medicine
DX: I87.323 Chronic venous hypertension (idiopathic) with inflammation of bilateral lower extremity (principal); L03.115 Cellulitis of right lower limb; L03.116 Cellulitis of left lower limb; I87.2 Venous insufficiency (chronic) (peripheral); I10 Essential (primary) hypertension; J44.9 Chronic obstructive pulmonary disease, unspecified; F41.9 Anxiety disorder, unspecified; F32.9 Major depressive disorder, single episode, unspecified; I87.8 Other specified disorders of veins; Z86.19 Personal history of other infectious and parasitic diseases; G89.4 Chronic pain syndrome; G62.9 Polyneuropathy, unspecified
CPT/HCPCS: 36415; 80048-TC; 83735-TC; 84100-TC; 85025-TC; 85610-TC; 85730-TC; 87081-TC; 93970-TC; G0378; J0690; J1940; J7050; J7060

== ENCOUNTER 2019-06-03 22:55 | Inpatient (IN) | payer MEDICARE, MEDICAID ==
[~2019-06-03] VITALS: Ht 185.4 cm; Wt 84.4 kg
--- NOTE | 2019-06-03 23:21 | NUR ---
BIB CG W/ C/O AMS. PT W/ HX OF METHADONE USE. NOTED W/ MULTIPLE SKIN TEARS OB BLE AND BUE
[2019-06-03 23:34] LABS: BASOPHILS % (AUTO) 0.3 % (0.0-2.0); EOSINOPHILS % (AUTO) 0.1 % (0.0-6.0); HEMATOCRIT 40 % (39-51); HEMOGLOBIN 13.2 g/dL (13.5-17.5); LYMPHOCYTES # (AUTO) 0.8 /CMM (0.8-4.8); LYMPHOCYTES % (AUTO) 6.8 % (20.0-44.0); MEAN CORPUSCULAR HGB CONC 33 g/dl (31.0-36.0); MEAN CORPUSCULAR VOLUME 95 fL (80-96); MONOCYTES # (AUTO) 0.9 /CMM (0.1-1.30); NEUTROPHILS # (AUTO) 9.6 /CMM (1.8-8.9); NEUTROPHILS % (AUTO) 84.8 % (43.0-81.0); PLATELET COUNT (AUTO) 99 /CMM (150-450); RED BLOOD CELL COUNT(AUTO) 4.22 MIL/uL (4.5-6.0); WHITE BLOOD COUNT (AUTO) 11.3 K/uL (4.3-11.0)
--- NOTE | 2019-06-03 23:43 | NUR ---
LEFT FOR CT
[2019-06-03 23:45] LABS: CALCIUM, SERUM 9.1 mg/dL (8.5-10.1); CARBON DIOXIDE 29 mmol/L (21-32); CHLORIDE 104 mmol/L (98-107); CREATININE 1.3 mg/dL (0.6-1.3); GLUCOSE 137 mg/dL (74-106); POTASSIUM 3.5 mmol/L (3.5-5.1); SODIUM SERUM 139 mmol/L (136-145); UREA NITROGEN, BLOOD 21 mg/dL (7-18)
[2019-06-03 23:48] LABS: APPEARANCE,URINE Clear (CLEAR); BILIRUBIN,URINE SMALL (NEGATIVE); BLOOD, URINE Trace-intact Ery/uL (NEGATIVE); COLOR,URINE Yellow (YELLOW); KETONES,URINE Negative (NEGATIVE); LEUKOCYTE ESTERASE ,URINE Negative (NEGATIVE); NITRITE, URINE Negative (NEGATIVE); PH,URINE 5.5 (5.0-8.0); PROTEIN,URINE Negative (NEGATIVE); UGLUCOSE Negative (NEGATIVE)
[2019-06-04] LABS: ALANINE AMINOTRANSFERASE 50 U/L (12-78); ALBUMIN 3.4 g/dL (3.4-5.0); ALCOHOL, BLOOD < 3 mg/dL (0-0); ALKALINE PHOSPHATASE 118 U/L (46-116); ASPARTATE AMINOTRANSFERASE 76 U/L (15-37); BILIRUBIN,DIRECT 0.3 mg/dL (0.0-0.2); BILIRUBIN,TOTAL 0.7 mg/dL (0.2-1.0); TOTAL PROTEIN, SERUM 7.7 g/dL (6.4-8.2)
[2019-06-04 00:06] LABS: SALICYLATE 0.7 mg/dL (2.8-20.0)
[2019-06-04 00:07] LABS: ACETAMINOPHEN 0 ug/ml (10-30)
[2019-06-04 00:36] LABS: BACTERIA,URINE None seen /HPF (None Seen); RBC,URINE 0-2 /HPF (0-2); SQUAMOUS EPITHELIAL CELL,UR Rare /HPF (None Seen); WBC,URINE 0-2 /HPF (0-3)
--- NOTE | 2019-06-04 01:07 | NUR ---
TEJ JACKSON(EMERGENCY CONTACT): [phone]
--- NOTE | 2019-06-04 01:35 | NUR ---
SPOKED TO , ADMITTING ORDERS RECEIVED.
[2019-06-04 01:46] LABS: BAND % (MANUAL) 2 % (0.0-5.0); LYMPHOCYTES % (MANUAL) 7 % (16-48); MONOCYTES % (MANUAL) 3 % (0-11.0); NEUTROPHILS % (MANUAL) 88 (42-76)
--- NOTE | 2019-06-04 01:50 | NUR ---
CALLED HOUSE SUP FOR TELE BED.
--- NOTE | 2019-06-04 02:15 | NUR ---
[facility] hospital assignment [id number]
--- NOTE | 2019-06-04 02:44 | NUR ---
REPORT GIVEN TO TESS ON THIRD FLOOR FOR BETTINA
--- NOTE | 2019-06-04 02:52 | NUR ---
PT WAS TRANSFERRED TO 326 UNDER ACLS
[2019-06-04] MEDS ORDERED: ACETAMINOPHEN 325 MG TABLET PO PRN (03:00)
[2019-06-04] MEDS ORDERED: ONDANSETRON HCL/PF 4 MG/2 ML VIAL IV PRN (03:00)
--- NOTE | 2019-06-04 03:00 | NUR ---
RN ADMITTING NOTES RECEIVED REPORT FROM AIR SHOVEL OPERATORLUC DOHERTY. Pt ARRIVED TO THE FLOOR VIA ER TARAN. Pt IS ABLE TO WALK, BUT WITH UNSTEADY GAIT, STANDBY ASSISTANCE NEEDED. Pt IS AWAKE, A/OX1, VERY CONFUSED, BUT IS VERBAL. Pt IS KNIK. Pt WAS ONLY ABLE TO STATE NAME AND YEAR OF (1945), WAS UNCERTAIN OF HIS ACTUAL (MONTH & DATE). Pt WAS UNABLE TO ANSWER WHAT THE CURRENT YEAR IS AND WHO THE CURRENT U.S. PRESIDENT IS. Pt IS UNCERTAIN WHERE HE CURRENTLY IS. Pt IS A POOR HISTORIAN AND UNABLE TO ANSWER THE QUESTIONS PROPERLY. Pt CAME UP TO THE FLOOR BY HIMSELF, NO FAMILY OR CAREGIVER AT BEDSIDE. IV ACCESS ON RFA #18G. VS STABLE. ON TELE MONITOR. TELE READING CONTROLLED AFIB 91. NO S/S OF ACUTE DISTRESS OR SOB NOTED. RESPIRATIONS EVEN AND UNLABORED. SAFETY MEASURES IN PLACE. BED LOW, LOCKED, HOB ELEVATED, SIDE RAILS UP, CALL LIGHT AND BEDSIDE TABLE WITHIN REACH. BED ALARM ON. WILL CONTINUE TO MONITOR Pt's CONDITION AND SAFETY.
[2019-06-04] MEDS ORDERED: IV NS 0.9% 1,000 ML BAG IV SCH (03:30)
[2019-06-04 04:00] VITALS: BP 123/69
--- NOTE | 2019-06-04 04:19 | NUR ---
RN NOTES SPOKE WITH RIN PHARMACIST FROM POISON CONTROL. WAS ASKING QUESTIONS IN REGARDS TO Pt's CONDITION.
[2019-06-04] MEDS: PANTOPRAZOLE 40 MG VIAL IV SCH (05:53)
[2019-06-04 06:16] LABS: BASOPHILS % (AUTO) 0.2 % (0.0-2.0); EOSINOPHILS % (AUTO) 0.2 % (0.0-6.0); HEMATOCRIT 36 % (39-51); HEMOGLOBIN 12.3 g/dL (13.5-17.5); LYMPHOCYTES # (AUTO) 1.3 /CMM (0.8-4.8); LYMPHOCYTES % (AUTO) 16.2 % (20.0-44.0); MEAN CORPUSCULAR HGB CONC 34 g/dl (31.0-36.0); MEAN CORPUSCULAR VOLUME 94 fL (80-96); MONOCYTES # (AUTO) 0.8 /CMM (0.1-1.30); NEUTROPHILS % (AUTO) 73.4 % (43.0-81.0); PLATELET COUNT (AUTO) 82 /CMM (150-450); RED BLOOD CELL COUNT(AUTO) 3.85 MIL/uL (4.5-6.0); WHITE BLOOD COUNT (AUTO) 8.1 K/uL (4.3-11.0)
[2019-06-04 06:42] LABS: CALCIUM, SERUM 8.6 mg/dL (8.5-10.1); MAGNESIUM 1.7 mg/dL (1.8-2.4); POTASSIUM 3.5 mmol/L (3.5-5.1)
--- NOTE | 2019-06-04 07:10 | NUR ---
TURF KEEPER NOTES PATIENT IN BED ALERT ORIENTED X 1. NO ACUTE DISTRESS NOTED. BREATHING UNLABORED. NO SOB NOTED. IV ACCESS PATENT AND INTACT, NO REDNESS, NO SWELLING NOTED. SAFETY MEASURES IN PLACE. CALL LIGHT WITHIN REACH. WILL CONTINUE TO MONITOR ACCORDINGLY
--- NOTE | 2019-06-04 07:38 | NUR ---
RN CLOSING NOTES: NO SIGNIFICANT CHANGES IN Pt's CONDITION. ALL NEEDS MET AND ATTENDED TO. Pt IS RESTING COMFORTABLY IN BED. NO S/S OF ACUTE DISTRESS OR SOB NOTED DURING THE NIGHT. SAFETY MEASURES IN PLACE. BED LOW, LOCKED, HOB ELEVATED, SIDE RAILS UP, CALL LIGHT AND BEDSIDE TABLE WITHIN REACH. BED ALARM ON. WILL ENDORSE TO DAYSHIFT RN FOR Pt's BETTINA. TELE READING CONTROLLED AFIB 61 - SB 50s WHEN SLEEPING.
[2019-06-04 08:00] VITALS: BP 100/62
[2019-06-04 08:58] LABS: BAND % (MANUAL) 1 % (0.0-5.0); LYMPHOCYTES % (MANUAL) 18 % (16-48); NEUTROPHILS % (MANUAL) 70 (42-76)
[2019-06-04 08:59] LABS: MONOCYTES % (MANUAL) 11 % (0-11.0)
[2019-06-04] MEDS: ENOXAPARIN SODIUM 40 MG/0.4 ML DISP.SYRIN SQ SCH (09:00)
[2019-06-04] MEDS: FUROSEMIDE 20 MG TABLET PO SCH (09:00)
[2019-06-04] MEDS: ATENOLOL 25 MG TABLET PO SCH ×2 (09:00→17:00)
[2019-06-04] MEDS: BACLOFEN (10 MG) 10 MG TABLET PO SCH ×3 (09:00→17:18)
--- NOTE | 2019-06-04 09:00 | NUR ---
MS RN NOTES NOTIFIED DR FRANCES SIM REGARDING PLATELET 82 LOW, CLARIFIED REGARDING LOVENOX ADMINISTRATION WITH ORDER TO HOLD DOSE AND OK TO PUT SEQUENTIAL DVT PUMP TO PATIENT.
[2019-06-04] MEDS ORDERED: Z GUARD REMEDY 2 OZ OINT TP PRN (11:30)
--- NOTE | 2019-06-04 11:31 | NUR ---
WOUND CARE CONSULT: PT PRESENTS WITH RT ARM SKIN TEAR AND BILATERAL LOWER LEG SKIN TEARS, PRESENT ON ADMISSION. RECOMMEND DPM CONSULT. DEFER TO DPM FOR LOWER EXTREMITIES. RECOMMENDATIONS MADE FOR SKIN PROTECTION AND WOUND CARE OF RT ARM SKIN TEAR. DISCUSSED WITH NURSING STAFF. CURRENT CED SCORE IS 16. Addendum: 06/04/19 at 1132 by LEAH BELTRÁNU Amended: Links added. Addendum: 06/04/19 at 1135 [address] LE[address] BELTR[address]NU DR WEATHERS NOTIFIED OF DPM CONSULT REQUEST.
[2019-06-04] MEDS: Magnesium 1GM/D5W 100ML PREMIX 100 ML IV SCH ×2 (12:40→13:40)
[2019-06-04 16:00] VITALS: BP 107/52
[2019-06-04] MEDS ORDERED: ALPRAZOLAM 0.25 MG TABLET PO PRN (17:00)
[2019-06-04] MEDS ORDERED: MORPHINE SULFATE INJ 2 MG/ML DISP.SYRIN IV PRN (17:00)
[2019-06-04] MEDS: IV NS 0.9% 1,000 ML IV PRN (17:20)
--- NOTE | 2019-06-04 19:00 | NUR ---
COOK DINNER NOTES PATIENT IN BED ALERT ORIENTED X 1-2. NO ACUTE DISTRESS NOTED. BREATHING UNLABORED. NO SOB NOTED. IV ACCESS PATENT AND INTACT, NO REDNESS, NO SWELLING NOTED. NEEDS ATTENDED AND ANTICIPATED. SAFETY MEASURES IN PLACE. CALL LIGHT WITHIN REACH. WILL ENDORSE TO NIGHT NURSE FOR CONTINUITY OF CARE.
--- NOTE | 2019-06-04 19:30 | NUR ---
RN OPEN NOTES RECEIVED PATIENT AWAKE IN BED. A/OX1-2. NO SIGNS OF DISTRESS OR DISCOMFORT. BREATHING EVEN AND UNLABORED. ON TELE MONITORING WITH AFIB 81 NOTED. IV ACCESS IN RFA WITH NS INFUSING, PATENT AND INTACT, NO SIGNS OF REDNESS OR INFILTRATION. BED IN LOW LOCKED POSITION WITH SIDE RAILS X3. CALL LIGHT WITHIN REACH. BED ALARM ON. WILL CONTINUE TO MONITOR.
[2019-06-04 20:00] VITALS: BP 179/62
--- NOTE | 2019-06-04 20:31 | NUR ---
Met with patient, seems alert but poor historian. States he lives in an independent living house with a caregiver 24/02 at [address] [facility] in [place]. Attempted to contact caregiver Colten [phone] and left message. Patient states he walks with a walker and requires min assist with adls. Was on service with [facility] [phone] in the past. Current dc planning is to return home, meghana Abel will provide ride. Addendum: 06/04/19 at 2030 by DAWN WEBB RN Amended: Links added.
[2019-06-05] VITALS: BP 139/78
[2019-06-05 00:01] VITALS: BP 139/78
[2019-06-05 04:00] VITALS: BP 137/84
[2019-06-05] MEDS: IV NS 0.9% 1,000 ML IV PRN ×2 (05:50→20:03)
[2019-06-05] MEDS: PANTOPRAZOLE 40 MG VIAL IV SCH (05:50)
--- NOTE | 2019-06-05 06:27 | NUR ---
RN CLOSING NOTES PATIENT AWAKE IN BED. A/OX1-2. NO SIGNS OF DISTRESS OR DISCOMFORT. BREATHING EVEN AND UNLABORED. ON TELE MONITORING WITH AFIB 96 NOTED. IV ACCESS IN RFA WITH NS INFUSING, PATENT AND INTACT, NO SIGNS OF REDNESS OR INFILTRATION. ALL NEEDS MET. NO SIGNIFICANT CHANGES THROUGH THE NIGHT. PATIENT KEPT CLEAN DRY AND COMFORTABLE. BED IN LOW LOCKED POSITION WITH SIDE RAILS X3. CALL LIGHT WITHIN REACH. BED ALARM ON. WILL ENDORSE TO AM SHIFT FOR BETTINA.
--- NOTE | 2019-06-05 07:10 | NUR ---
CLERICAL PRODUCTION WORKER NOTES PATIENT IN BED ALERT ORIENTED X 1-2. NO ACUTE DISTRESS NOTED. BREATHING UNLABORED. NO SOB NOTED. IV ACCESS PATENT AND INTACT, NO REDNESS, NO SWELLING NOTED. SAFETY MEASURES IN PLACE. CALL LIGHT WITHIN REACH. WILL CONTINUE TO MONITOR ACCORDINGLY
[2019-06-05 07:31] LABS: CALCIUM, SERUM 8.5 mg/dL (8.5-10.1); CREATININE 0.8 mg/dL (0.6-1.3); MAGNESIUM 2.2 mg/dL (1.8-2.4); POTASSIUM 3.9 mmol/L (3.5-5.1)
[2019-06-05] MEDS: FUROSEMIDE 20 MG TABLET PO SCH (08:15)
[2019-06-05] MEDS: BACLOFEN (10 MG) 10 MG TABLET PO SCH ×3 (08:15→16:41)
[2019-06-05] MEDS: ATENOLOL 25 MG TABLET PO SCH ×2 (08:16→16:41)
[2019-06-05] MEDS: ENOXAPARIN SODIUM 40 MG/0.4 ML DISP.SYRIN SQ SCH (08:16)
[2019-06-05] MEDS: ALPRAZOLAM 0.25 MG TABLET PO PRN (15:40)
[2019-06-05 16:07] VITALS: BP_SYST 155; BP_SYST 159; BP_DIAS 69; BP_DIAS 72
--- NOTE | 2019-06-05 16:20 | NUR ---
SOCIAL SECRETARY NOTES PATIENT BECOMES AGITATED, SCREAMING, KICKING, GETTING UP OF HIS BED. ASSISTED PATIENT BACK TO BED, SAFETY MEASURES PROVIDED TO THE PATIENT. CHARGE NURSE TREVON NOTIFIED DR FRANCES SIM, ORDER RECEIVED BY RAMILA LESTER. CARRIED OUT ORDERS.
[2019-06-05] MEDS: LORAZEPAM INJ 2 MG/ML VIAL IV PRN ×2 (16:33→22:37)
--- NOTE | 2019-06-05 16:33 | NUR ---
UNDERLAY STITCHER NOTES PATIENT STILL AGITATED, SCREAMING, KICKING, PATIENT WITH STABLE VITAL SIGNS, ATIVAN GIVEN ORDERED. SAFETY MEASURES PROVIDED TO THE PATIENT. WILL CONTINUE TO MONITOR PATIENT.
--- NOTE | 2019-06-05 19:00 | NUR ---
BANK WORKER NOTES PATIENT IN BED ALERT ORIENTED X 1-2. PATIENT IS CALM AT THIS TIME .NO ACUTE DISTRESS NOTED. BREATHING UNLABORED. NO SOB NOTED. IV ACCESS PATENT AND INTACT, NO REDNESS, NO SWELLING NOTED. NEEDS ATTENDED AND ANTICIPATED. SAFETY MEASURES IN PLACE. CALL LIGHT WITHIN REACH. WILL ENDORSE TO NIGHT NURSE FOR CONTINUITY OF CARE.
--- NOTE | 2019-06-05 19:10 | NUR ---
CHILD WELFARE MANAGER NOTES Received patient A/O x2, awake on bed. On RA, patient denies discomfort at this time. On tele monitor with A-Fib noted. On diaper, noted clean and dry at this time. With patent RFA G#18 with NS infusing well @ 100 ml/hr as ordered. On methadone, dosing information to be f/u with the caregiver. Per AM RN, voicemail sent, awaiting for call back. Kept on bed clean, dry and comfortable. Call light within easy reach. On fall, and aspiration precautions. Sitter at bedside. Will continue to monitor accordingly.
[2019-06-05 20:00] VITALS: BP 122/73
--- NOTE | 2019-06-05 20:00 | NUR ---
RESPIRATORY CARE TECHNICIAN NOTES Received a call from the caregiver Colten. Verified Methadone, patient is take 145mg OD. Pharmacy: [facility], phone # [phone]. Will follow up to in house pharmacy.
[2019-06-05 22:00] VITALS: BP 122/73
[2019-06-06] VITALS: BP 125/70
[2019-06-06 04:00] VITALS: BP 120/78
[2019-06-06] MEDS: IV NS 0.9% 1,000 ML IV PRN ×2 (05:34→15:51)
[2019-06-06] MEDS: PANTOPRAZOLE 40 MG VIAL IV SCH (06:11)
[2019-06-06 06:56] LABS: BASOPHILS % (AUTO) 0.4 % (0.0-2.0); EOSINOPHILS % (AUTO) 0.4 % (0.0-6.0); HEMATOCRIT 38 % (39-51); HEMOGLOBIN 12.6 g/dL (13.5-17.5); LYMPHOCYTES # (AUTO) 1.1 /CMM (0.8-4.8); LYMPHOCYTES % (AUTO) 22.3 % (20.0-44.0); MEAN CORPUSCULAR HGB CONC 33 g/dl (31.0-36.0); MEAN CORPUSCULAR VOLUME 95 fL (80-96); MONOCYTES # (AUTO) 0.6 /CMM (0.1-1.30); MONOCYTES % (AUTO) 13.4 % (2.0-12.0); NEUTROPHILS # (AUTO) 3.1 /CMM (1.8-8.9); NEUTROPHILS % (AUTO) 63.5 % (43.0-81.0); PLATELET COUNT (AUTO) 83 /CMM (150-450); WHITE BLOOD COUNT (AUTO) 4.8 K/uL (4.3-11.0)
--- NOTE | 2019-06-06 06:58 | NUR ---
QC SCIENTIST CLOSING NOTES Patient intermittently asleep, on RA, no new complaints made. On tele monitor with controlled afib noted. on fall and aspiration precautions. All nursing needs attended. Kept on bed clean, dry and comfortable. Endorsed to the next shift.
--- NOTE | 2019-06-06 07:00 | NUR ---
STRAP MAKER NOTES PATIENT IN BED ALERT ORIENTED X 2. NO ACUTE DISTRESS NOTED. NO SOB NOTED. BREATHING UNLABORED. IV ACCESS PATENT AND INTACT, NO REDNESS OR SWELLING NOTED. SITTER AT BEDSIDE. SAFETY MEASURES IN PLACE. CALL LIGHT WITHIN REACH. WILL CONTINUE TO MONITOR ACCORDINGLY.
[2019-06-06 07:20] LABS: CALCIUM, SERUM 8.5 mg/dL (8.5-10.1); CREATININE 0.9 mg/dL (0.6-1.3); MAGNESIUM 1.9 mg/dL (1.8-2.4); POTASSIUM 3.7 mmol/L (3.5-5.1)
[2019-06-06] MEDS: BACLOFEN (10 MG) 10 MG TABLET PO SCH ×3 (08:28→17:01)
[2019-06-06] MEDS: FUROSEMIDE 20 MG TABLET PO SCH (08:29)
[2019-06-06] MEDS: ATENOLOL 25 MG TABLET PO SCH ×2 (08:29→17:01)
[2019-06-06] MEDS: ENOXAPARIN SODIUM 40 MG/0.4 ML DISP.SYRIN SQ SCH (08:30)
[2019-06-06] MEDS: METHADONE HCL 10 MG TABLET PO SCH (10:06)
[2019-06-06] MEDS: ALPRAZOLAM 0.25 MG TABLET PO PRN ×2 (12:33→21:02)
[2019-06-06] MEDS ORDERED: MAGNESIUM HYDROXIDE 30 ML UDC PO PRN (13:00)
[2019-06-06] MEDS: DOCUSATE SODIUM 250 MG CAPSULE PO SCH ×2 (13:20→17:01)
--- NOTE | 2019-06-06 19:00 | NUR ---
MACHINE INKER NOTES PATIENT IN BED ALERT ORIENTED X 2.SITTER AT BEDSIDE. NO ACUTE DISTRESS NOTED. NO SOB NOTED. BREATHING UNLABORED. IV ACCESS PATENT AND INTACT, NO REDNESS OR SWELLING NOTED. DUE MEDICATIONS GIVEN. NO ASE NOTED. NEEDS ATTENDED AND ANTICIPATED. KEPT CLEAN DRY AND CONFORTABLE. SAFETY MEASURES IN PLACE. CALL LIGHT WITHIN REACH. WILL ENDORSE TO NIGHT NURSE FOR CONTINUITY OF CARE.
--- NOTE | 2019-06-06 19:10 | NUR ---
FLOOR FRAMER OPENING NOTES Received patient A/Ox2, awake on high Perez's position on bed. On RA, no SOB/respiratory distress noted. On tele monitor with controlled A-Fib noted. Patient denies any discomfort at this time. Sitter at bedside. Kept on bed clean, dry and comfortable. Will continue to monitor accordingly.
--- NOTE | 2019-06-06 19:55 | NUR ---
MEMBERSHIP ADMINISTRATOR OPENING NOTES Received patient [place]/Ox2, awake on high Perez's position on bed. On RA, no SOB/respiratory distress noted. Patient denies any discomfort at this time. Sitter at bedside. Kept on bed clean, dry and comfortable. Will continue to monitor accordingly. Addendum: 06/06/19 at 1956 by KAMAR BOYKIN RN duplicate documentation
[2019-06-06 20:00] VITALS: BP_SYST 114; BP_SYST 131; BP_DIAS 63; BP_DIAS 83
[2019-06-07] VITALS: BP 131/70
[2019-06-07 00:01] VITALS: BP 131/78
[2019-06-07] MEDS: IV NS 0.9% 1,000 ML IV PRN (01:56)
[2019-06-07 04:00] VITALS: BP 141/92
[2019-06-07] MEDS: PANTOPRAZOLE 40 MG VIAL IV SCH (06:03)
--- NOTE | 2019-06-07 06:44 | NUR ---
FUEL MANAGER CLOSING NOTES Patient asleep, easily awaken. On RA, no SOB/respiratory distress noted. All nursing needs attended. All due meds given as ordered. No new complaints made. Kept on bed clean, dry and comfortable. Call light within easy reach. Sitter at bedside. On fall precautions. Endorsed to the next shift.
--- NOTE | 2019-06-07 07:51 | NUR ---
MASTIC FLOOR LAYER OPENING NOTE Patient received resting in bed, confused at times, A/O x2. Oriented to time, date, and place. Lelo Ching is at the bedside. Patient is showing no signs of acute distress or SOB. Tele monitor is controlled a-fib. IV is clean and patent. Bed is in lowest position, side rails x3 in upright position. Will continue to monitor.
[2019-06-07 08:00] VITALS: BP 154/79
[2019-06-07] MEDS: FUROSEMIDE 20 MG TABLET PO SCH (08:29)
[2019-06-07] MEDS: BACLOFEN (10 MG) 10 MG TABLET PO SCH ×3 (08:29→16:43)
[2019-06-07] MEDS: DOCUSATE SODIUM 250 MG CAPSULE PO SCH ×2 (08:29→16:43)
[2019-06-07] MEDS: ENOXAPARIN SODIUM 40 MG/0.4 ML DISP.SYRIN SQ SCH (08:30)
[2019-06-07] MEDS: METHADONE HCL 10 MG TABLET PO SCH (08:32)
--- NOTE | 2019-06-07 09:00 | NUR ---
MS/RN Medications All morning medications administered as ordered.
[2019-06-07] MEDS: ATENOLOL 25 MG TABLET PO SCH ×2 (10:37→16:46)
--- NOTE | 2019-06-07 11:16 | NUR ---
MS/RN Methadone Clinic [facility] called to verify dosages of methadone that patient has been prescribed. Current dose at clinic 145mg. -[facility] - - phone - - fax
--- NOTE | 2019-06-07 12:07 | NUR ---
MS/RN S/B Dr Cody Seen by MD - methadone dose decreased to 100mg QD, starting tomorrow at 0900.
--- NOTE | 2019-06-07 15:17 | NUR ---
MS/RN Rounds Patient remains calm and cooperative, no new concerns at this time. Sitter remains at bedside for safety.
--- NOTE | 2019-06-07 16:35 | NUR ---
MS/RN DC IV FLUIDS ORDER OBTAINED FROM DR. SIM TO DC IV FLUIDS.
--- NOTE | 2019-06-07 18:15 | NUR ---
MS/RN CLOSING NOTE PATIENT RESTING IN BED, A/O X2, CONFUSED AT TIMES. SHOWS NO SIGNS OF ACUTE DISTRESS OR SOB. SITTER MADELIN AT THE BEDSIDE. ALL PATIENTS NEEDS MET. IV RFA H/L 18G IS CLEAN AND INTACT. ALL DUE MEDS GIVEN. BED IS IN LOWEST POSITION, SIDE RAILS X2 IN UPRIGHT POSITION. CALL LIGHT IS WITHIN REACH. WILL ENDORSE TO SLEEP LAB TECHNICIAN.
--- NOTE | 2019-06-07 19:44 | NUR ---
MS/RN NOTES RECEIVED PATIENT RESTING COMFORTABLY IN BED, ALERT ORIENTED X2, CONFUSED AT TIMES. SHOWS NO SIGNS OF ACUTE RESPIRATORY DISTRESS OR SOB. DENIES PAIN AT THIS TIME, IV RFA H/L 18G IS CLEAN AND INTACT. ALL DUE MEDS GIVEN. SAFETY MEASURES IN PLACE, BED IN LOWEST LOCKED POSITION, SIDE RAILS X2 IN UPRIGHT POSITION. CALL LIGHT WITHIN EASY REACH. WILL CONTINUE TO MONITOR ACCORDINGLY.
[2019-06-07 20:09] VITALS: BP 142/81
[2019-06-08] MEDS: ALPRAZOLAM 0.25 MG TABLET PO PRN ×2 (00:29→12:29)
[2019-06-08] MEDS: PANTOPRAZOLE 40 MG VIAL IV SCH (06:02)
--- NOTE | 2019-06-08 07:06 | NUR ---
MS/RN NOTES PATIENT RESTING COMFORTABLY IN BED, ALERT ORIENTED X2, CONFUSED AT TIMES. SHOWS NO SIGNS OF ACUTE RESPIRATORY DISTRESS OR SOB. DENIES PAIN AT THIS TIME, IV RFA H/L 18G IS CLEAN AND INTACT. ALL DUE MEDS GIVEN. SAFETY MEASURES IN PLACE, BED IN LOWEST LOCKED POSITION, SIDE RAILS X2 IN UPRIGHT POSITION. CALL LIGHT WITHIN EASY REACH. SITTER AT BEDSIDE THROUGHOUT THE SHIFT, NO CHANGED OF CONDITION OR BEHAVIOR NOTED. ENDORSED TO AM NURSE FOR CONTINUITY OF CARE.
--- NOTE | 2019-06-08 07:22 | NUR ---
M/S RN OPENING NOTES PATIENT RECEIVED RESTING IN BED, A/O x2. NO SIGNS OF ACUTE DISTRESS AND NO CURRENT COMPLAINTS OF PAIN OR NAUSEA. IV ON RIGHT FA G#18. SAFETY MEASURES ARE IN PLACE WITH BED IN LOWEST POSITION, LOCKED, BED ALARM ON, AND SIDE RAILS x2. SITTER IS CURRENTLY AT BED SIDE. WILL CONTINUE TO MONITOR.
[2019-06-08 08:00] VITALS: BP 134/82
[2019-06-08] MEDS: DOCUSATE SODIUM 250 MG CAPSULE PO SCH ×2 (08:42→16:59)
[2019-06-08] MEDS: FUROSEMIDE 20 MG TABLET PO SCH (08:42)
[2019-06-08] MEDS: ATENOLOL 25 MG TABLET PO SCH ×2 (08:44→17:00)
[2019-06-08] MEDS: BACLOFEN (10 MG) 10 MG TABLET PO SCH ×3 (08:44→17:00)
[2019-06-08] MEDS: ENOXAPARIN SODIUM 40 MG/0.4 ML DISP.SYRIN SQ SCH (08:50)
[2019-06-08] MEDS: METHADONE HCL 10 MG TABLET PO SCH (08:53)
--- NOTE | 2019-06-08 12:15 | NUR ---
M/S RN NOTES ORAL TEMPERATURE NOTED TO BE 102.4. DR. SIM INFORMED AND ORDERS GIVEN. BLOOD CULTURE x2, CHEST X-RAY, URINE C&S, ZOSYN 3.375 MG IV Q6H.
[2019-06-08] MEDS ORDERED: PIPERACILLIN /TAZOBACTAM 3.375 G in IV D5W 50 ML IV ONE (12:30)
--- NOTE | 2019-06-08 12:47 | NUR ---
M/S RN NOTES URINE SPECIMEN COLLECTED THROUGH STRAIGHT CATH TO BE SENT TO LAB FOR CULTURE AND SENSITIVITY.
--- NOTE | 2019-06-08 13:10 | NUR ---
MS/RN S/B Dr Cody Seen by Dr Cody - wait for urine culture and blood culture results.
--- NOTE | 2019-06-08 15:17 | NUR ---
M/S RN NOTES ZOSYN 3.375G IV D5W 5ML ADMINISTERED AT 14:40, MEDICATION NOT AVAILABLE. PHARMACY NOTIFIED TWICE.
--- NOTE | 2019-06-08 15:20 | NUR ---
M/S RN NOTES CHEST X-RAY RESULTS RIGHT MIDLUNG AND BASILAR OPACITY SUGGESTING PNEUMONIA. DR. SIM MADE AWARE.
[2019-06-08 15:43] VITALS: BP 118/75
--- NOTE | 2019-06-08 17:44 | NUR ---
M/S RN NOTES PATIENT NOW HAS PRODUCTIVE COUGH. THING, GREEN, WHITE CONSISTENCY. SUCTION SET UP AT BEDSIDE. SWALLOW EVALUATION ORDERED.
--- NOTE | 2019-06-08 18:32 | NUR ---
M/S RN NOTES CALLED PHARMACY TO CHANGE THE TIME OF ZOSYN THAT WAS SCHEDULED FOR 1800 PREVIOUS DOSE UNABLE TO BE ADMINISTERED ON TIME DUE TO PHARMACY DELIVERING MEDICATION DELAYED.
--- NOTE | 2019-06-08 18:36 | NUR ---
M/S RN NOTES PATIENT CURRENTLY RESTING IN BED WATCHING TV. ABLE TO FOLLOW COMMANDS A/O x2-3. PATIENT HAS NO SIGNS OF DISTRESS OR COMPLAINTS OF ANY PAIN. PATIENT HAS PRODUCTIVE COUGH. IV PLACED ON RIGHT FA HL G#18. SAFETY PRECAUTIONS ARE IN PLACE WITH BED IN LOWEST POSITION, BED ALARM ON, SIDE RAILS UP x2, AND CALL LIGHT WITHIN REACH. SITTER IS AT BED SIDE 1:1. WILL ENDORSE TO ONCOMING SHIFT ABOUT BETTINA.
--- NOTE | 2019-06-08 19:00 | NUR ---
MS RN OPENING NOTES PATIENT RECEIVED IN BED WATCHING TV. ALERT, ORIENTED X 2-3. BREATHING EVEN AND UNLABORED. NOT IN ANY DISTRESS. NO COMPLAINTS OF PAIN AT THIS TIME. IV ACCESS ON RFA G#18, INTACT AND PATENT. SAFETY MEASURES IN PLACE. CALL LIGHT WITHIN REACH. BED IN LOWEST, LOCKED POSITION, SIDE RAILS UP x2. 1:1 SITTER AT BEDSIDE. WILL CONTINUE TO MONITOR ACCORDINGLY.
--- NOTE | 2019-06-08 19:42 | NUR ---
RN NOTES TALKED TO PHARMACY TO CLARIFY ZOSYN DOSE THAT'S DUE AT 1800. PER AM RN, DOSE WASN'T GIVEN THEY GAVE IT AT 1448. PER PHARMACIST, GIVE DOSE NOW AND FOLLOW THE SCHEDULE. Addendum: 06/08/19 at 2033 by JANEEN TAYLOR RN ADDITIONAL NOTES TALKED WITH PHARMACIST GEMINI
[2019-06-08] MEDS: PIPERACILLIN /TAZOBACTAM 3.375 G in IV D5W 100 ML IV SCH (19:48)
[2019-06-08 20:00] VITALS: BP_SYST 121; BP_SYST 129; BP_DIAS 72; BP_DIAS 74
--- NOTE | 2019-06-08 20:28 | NUR ---
RN NOTES PATIENT C/O CONSTIPATION. MILK OF MAGNESIA PO GIVEN ORDERED.
[2019-06-09] MEDS: ALPRAZOLAM 0.25 MG TABLET PO PRN ×2 (00:31→12:04)
[2019-06-09] MEDS: PIPERACILLIN /TAZOBACTAM 3.375 G in IV D5W 100 ML IV SCH ×3 (02:15→18:48)
[2019-06-09] MEDS: PANTOPRAZOLE 40 MG VIAL IV SCH (05:40)
[2019-06-09 06:27] LABS: CALCIUM, SERUM 8.7 mg/dL (8.5-10.1); MAGNESIUM 2.1 mg/dL (1.8-2.4); POTASSIUM 3.5 mmol/L (3.5-5.1)
[2019-06-09 06:34] LABS: BASOPHILS % (AUTO) 0.1 % (0.0-2.0); EOSINOPHILS % (AUTO) 0.1 % (0.0-6.0); HEMATOCRIT 44 % (39-51); LYMPHOCYTES # (AUTO) 1.5 /CMM (0.8-4.8); LYMPHOCYTES % (AUTO) 12.9 % (20.0-44.0); MEAN CORPUSCULAR HGB CONC 34 g/dl (31.0-36.0); MEAN CORPUSCULAR VOLUME 94 fL (80-96); MONOCYTES % (AUTO) 9.1 % (2.0-12.0); NEUTROPHILS # (AUTO) 8.8 /CMM (1.8-8.9); NEUTROPHILS % (AUTO) 77.8 % (43.0-81.0); PLATELET COUNT (AUTO) 98 /CMM (150-450); WHITE BLOOD COUNT (AUTO) 11.3 K/uL (4.3-11.0)
--- NOTE | 2019-06-09 06:58 | NUR ---
MS RN CLOSING NOTES PATIENT STILL SLEEPING IN BED. BREATHING EVEN AND UNLABORED. NOT IN ANY DISTRESS. NO COMPLAINTS OF PAIN AT THIS TIME. IV ACCESS ON RFA G#18, INTACT AND PATENT. SAFETY MEASURES IN PLACE. CALL LIGHT WITHIN REACH. BED IN LOWEST, LOCKED POSITION, SIDE RAILS UP x2. 1:1 SITTER AT BEDSIDE. WILL ENDORSE BETTINA TO ONCOMING RN
[2019-06-09] MEDS: ATENOLOL 25 MG TABLET PO SCH ×2 (09:11→17:00)
[2019-06-09] MEDS: BACLOFEN (10 MG) 10 MG TABLET PO SCH ×3 (09:11→17:52)
[2019-06-09] MEDS: FUROSEMIDE 20 MG TABLET PO SCH (09:11)
[2019-06-09] MEDS: METHADONE HCL 10 MG TABLET PO SCH (09:11)
[2019-06-09] MEDS: DOCUSATE SODIUM 250 MG CAPSULE PO SCH ×2 (09:11→17:52)
[2019-06-09] MEDS: ENOXAPARIN SODIUM 40 MG/0.4 ML DISP.SYRIN SQ SCH (09:13)
[2019-06-09] MEDS: methylPREDNISolone SOD SUCC 40 MG/ML VIAL IV SCH ×2 (13:16→17:51)
--- NOTE | 2019-06-09 19:05 | NUR ---
MS RN OPENING NOTES PATIENT RECEIVED IN BED WATCHING TV. ALERT, ORIENTED X 2-3. BREATHING EVEN AND UNLABORED. NOT IN ANY DISTRESS. NO COMPLAINTS OF PAIN AT THIS TIME. IV ACCESS ON RFA G#18, INTACT AND PATENT, CURRENTLY INFUSING IV ZOSYN AT 25ML/HR. SAFETY MEASURES IN PLACE. CALL LIGHT WITHIN REACH. BED IN LOWEST, LOCKED POSITION, SIDE RAILS UP x2. 1:1 SITTER AT BEDSIDE. WILL CONTINUE TO MONITOR ACCORDINGLY.
[2019-06-09 20:00] VITALS: BP 121/72
[2019-06-10] MEDS: ALPRAZOLAM 0.25 MG TABLET PO PRN ×2 (00:05→13:12)
--- NOTE | 2019-06-10 00:05 | NUR ---
RN NOTES PATIENT C/O ANXIETY. REQUESTING FOR XANAX- GIVEN ORDERED
[2019-06-10] MEDS: PIPERACILLIN /TAZOBACTAM 3.375 G in IV D5W 100 ML IV SCH ×3 (01:35→17:37)
[2019-06-10] MEDS: PANTOPRAZOLE 40 MG VIAL IV SCH (05:41)
--- NOTE | 2019-06-10 06:28 | NUR ---
MS RN CLOSING NOTES PATIENT STILL SLEEPING IN BED. BREATHING EVEN AND UNLABORED. NOT IN ANY DISTRESS. NO COMPLAINTS OF PAIN AT THIS TIME. IV ACCESS ON RFA G#18, INTACT AND PATENT. ALL NEEDS ATTENDED AND ANTICIPATED. SAFETY MEASURES IN PLACE. CALL LIGHT WITHIN REACH. BED IN LOWEST, LOCKED POSITION, SIDE RAILS UP x2. 1:1 SITTER AT BEDSIDE. WILL ENDORSE BETTINA TO ONCOMING RN
--- NOTE | 2019-06-10 07:15 | NUR ---
MS RN NOTES PATIENT IN BED ALERT ORIENTED X 2. NO ACUTE DISTRESS NOTED. BREATHING UNLABORED. NO SOB NOTED. SITTER AT BEDSIDE. IV ACCESS PATENT AND INTACT, NO REDNESS, NO SWELLING NOTED. SAFETY MEASURES IN PLACE. CALL LIGHT WITHIN REACH. WILL CONTINUE TO MONITOR ACCORDINGLY
[2019-06-10] MEDS: ATENOLOL 25 MG TABLET PO SCH ×2 (09:00→16:59)
[2019-06-10] MEDS: FUROSEMIDE 20 MG TABLET PO SCH (09:00)
[2019-06-10] MEDS: DOCUSATE SODIUM 250 MG CAPSULE PO SCH ×2 (09:07→16:50)
[2019-06-10] MEDS: BACLOFEN (10 MG) 10 MG TABLET PO SCH ×3 (09:07→16:50)
[2019-06-10] MEDS: methylPREDNISolone SOD SUCC 40 MG/ML VIAL IV SCH ×3 (09:07→16:50)
[2019-06-10] MEDS: METHADONE HCL 10 MG TABLET PO SCH (09:08)
[2019-06-10] MEDS: ENOXAPARIN SODIUM 40 MG/0.4 ML DISP.SYRIN SQ SCH (09:58)
--- NOTE | 2019-06-10 19:09 | NUR ---
MS RN NOTES PATIENT IN BED ALERT ORIENTED X 2. NO ACUTE DISTRESS NOTED. BREATHING UNLABORED. NO SOB NOTED. SITTER AT BEDSIDE. IV ACCESS PATENT AND INTACT, NO REDNESS, NO SWELLING NOTED. DUE MEDICATIONS GIVEN, NO ASE NOTED. NEEDS ATTENDED AND ANTICIPATED. KEPT CLEAN DRY AND COMFORTABLE. TURN AND REPOSITIONED PER PROTOCOL. SAFETY MEASURES IN PLACE. CALL LIGHT WITHIN REACH. WILL ENDORSE TO NIGHT NURSE FOR CONTINUITY OF CARE.
--- NOTE | 2019-06-10 19:15 | NUR ---
ms risk officer initial notes received report from am nurse Mame and saw pt in bed awake and alert on sitting position with side rails x2 up. still with Zosyn IVPB still infusing at 25ml/hr. denies any pain or any discomfort. breathing even and unlabored. skin noted some bruises and and also lower extremities. dressing on his lower legs still dry and intact. elevated his both heels on pillows. kept him warm and comfortable at all times. place call light at reach.sitter at the bedside for pt safety. will continue monitoring.
[2019-06-11] MEDS: ALPRAZOLAM 0.25 MG TABLET PO PRN ×2 (00:08→11:35)
[2019-06-11] MEDS: PIPERACILLIN /TAZOBACTAM 3.375 G in IV D5W 100 ML IV SCH ×2 (01:53→10:09)
[2019-06-11] MEDS: PANTOPRAZOLE 40 MG VIAL IV SCH (06:11)
--- NOTE | 2019-06-11 06:20 | NUR ---
MS RN NOTES AWAKE & RESPONSIVE. NOT IN ANY DISTRESS. NO SOB NOTED. DENIES ANY PAIN OR ANY DISCOMFORT AT THIS TIME. WITH IV-HL PATENT & INTACT. AM CARE DONE. MONITORED ACCORDINGLY. CALL LIGHT WITHIN REACH. BED IN LOWEST POSITION. SR UP X 2 FOR SAFETY. WILL ENDORSE TO NEXT SHIFT.
--- NOTE | 2019-06-11 07:30 | NUR ---
M/S RN NOTES PATIENT RESTING, LYING IN BED, SITTER AT BEDSIDE. PATIENT IN NO RESPIRATORY DISTRESS, NO C/O PAIN AT THIS TIME. SKIN WARM TO TOUCH. IV SL ON THE RFA #18G, INTACT AND PATENT. PATIENT'S NEEDS ATTENDED. BED ON LOWEST LOCKED POSITION, CALL LIGHT WITHIN REACH. WILL CONTINUE TO MONITOR.
[2019-06-11] MEDS: methylPREDNISolone SOD SUCC 40 MG/ML VIAL IV SCH ×2 (08:33→13:37)
[2019-06-11] MEDS: DOCUSATE SODIUM 250 MG CAPSULE PO SCH (08:33)
[2019-06-11] MEDS: FUROSEMIDE 20 MG TABLET PO SCH (08:34)
[2019-06-11] MEDS: METHADONE HCL 10 MG TABLET PO SCH (08:34)
[2019-06-11] MEDS: BACLOFEN (10 MG) 10 MG TABLET PO SCH ×2 (08:36→13:37)
[2019-06-11 08:37] VITALS: BP 103/59
[2019-06-11] MEDS: ATENOLOL 25 MG TABLET PO SCH (08:37)
--- NOTE | 2019-06-11 17:00 | NUR ---
M/S RN NOTES PATIENT DISCHARGED IN STABLE CONDITION, VSS, NO RESPIRATORY DISTRESS, NO C/O PAIN AT THIS TIME. PATIENT'S SKIN ASSESSED AND PHOTOS TAKEN, PLACED IN CHART. BELONGINGS ACCOUNTED FOR AND SIGNED. PATIENT GIVEN DISCHARGE INSTRUCTIONS, VERBALIZED UNDERSTANDING. PATIENT'S NEEDS ATTENDED. PATIENT LEFT WITH IV SL ON THE RFA #18G, INTACT AND PATENT. PATIENT TO CONTINUE IV ABX PER MD ORDER. PATIENT LEFT WITH PARAMEDICS VIA GURNEY.
== END 2019-06-11 17:05 | DRG 917 ==
LOC: ER 22:55 → TELE 06-04 02:33 → MED 06-07 08:38
PROVIDERS: ADMIT Legal Medicine; ATTEND Legal Medicine
DX: T40.3X1A Poisoning by methadone, accidental (unintentional), initial encounter (principal); G92 Toxic encephalopathy; J18.9 Pneumonia, unspecified organism; J44.0 Chronic obstructive pulmonary disease with (acute) lower respiratory infection; I87.313 Chronic venous hypertension (idiopathic) with ulcer of bilateral lower extremity; L97.829 Non-pressure chronic ulcer of other part of left lower leg with unspecified severity; L97.819 Non-pressure chronic ulcer of other part of right lower leg with unspecified severity; Y92.89 Other specified places as the place of occurrence of the external cause; T42.4X1A Poisoning by benzodiazepines, accidental (unintentional), initial encounter; G89.4 Chronic pain syndrome; F41.1 Generalized anxiety disorder; I87.8 Other specified disorders of veins; F09 Unspecified mental disorder due to known physiological condition; K21.9 Gastro-esophageal reflux disease without esophagitis; M19.90 Unspecified osteoarthritis, unspecified site; M54.5 Low back pain; M79.7 Fibromyalgia; F43.10 Post-traumatic stress disorder, unspecified; F41.9 Anxiety disorder, unspecified; F32.9 Major depressive disorder, single episode, unspecified; G47.9 Sleep disorder, unspecified; I89.0 Lymphedema, not elsewhere classified; K59.00 Constipation, unspecified; I10 Essential (primary) hypertension
CPT/HCPCS: 36415; 70450-TC; 70486-TC; 71045-TC; 72125-TC; 80048-TC; 80076-TC; 80305; 81000-TC; 82962-TC; 83605-TC; 83735-TC; 84484-TC; 85025-TC; 87040-TC; 87081-TC; 87086-TC; 92521; 92526; 92611-TC; 97116-TC; 97530-TC; A6403; C9113; G0378; G0480; J1650; J2060; J2270; J2543; J2920; J3475; J3490; J7030; J7060

== ENCOUNTER 2021-01-12 12:15 | Outpatient (CLI) | payer MEDICARE, MEDICAID ==
[~2021-01-12 12:15] MED LIST changes: -ALPR0.5T PO; -AMIT25TA9 PO
== END 2021-01-12 23:59 | disposition home or self-care (01) ==
LOC: LAB 12:15
PROVIDERS: ATTEND Surgery
DX: R22.31 Localized swelling, mass and lump, right upper limb (principal)
CPT/HCPCS: 36415; 82565-TC; 84520-TC

== ENCOUNTER 2021-01-16 12:12 | Outpatient (CLI) | payer MEDICARE, MEDICAID ==
[2021-01-16] MEDS ORDERED: GADOTERATE MEGLUMINE 10 MMOL/20 ML VIAL IV ONE (12:13)
== END 2021-01-16 23:59 | disposition home or self-care (01) ==
LOC: MRI 12:12
PROVIDERS: ATTEND Surgery
DX: D17.21 Benign lipomatous neoplasm of skin and subcutaneous tissue of right arm (principal); R22.31 Localized swelling, mass and lump, right upper limb
CPT/HCPCS: 73220; A9575

== ENCOUNTER 2021-02-08 13:15 | Outpatient (CLI) | payer MEDICARE, MEDICAID | END 2021-02-08 23:59 | disposition home or self-care (01) | LOC: WOU 13:15 | PROVIDERS: ATTEND Surgery | DX: D17.21 Benign lipomatous neoplasm of skin and subcutaneous tissue of right arm (principal); R26.2 Difficulty in walking, not elsewhere classified; M62.50 Muscle wasting and atrophy, not elsewhere classified, unspecified site; F03.90 Unspecified dementia, unspecified severity, without behavioral disturbance, psychotic disturbance, mood disturbance, and anxiety; I10 Essential (primary) hypertension | CPT/HCPCS: G0463 ==

== ENCOUNTER 2021-02-19 16:57 | Inpatient (IN) | payer MEDICARE, OTHER ==
[~2021-02-19] VITALS: Ht 185.4 cm; Wt 104.8 kg
[2021-02-19] MEDS ORDERED: ONDANSETRON HCL/PF 4 MG/2 ML VIAL IVP ONE (17:30)
[2021-02-19] MEDS ORDERED: MORPHINE SULFATE INJ 2 MG/ML DISP.SYRIN IV ONE (17:30)
[2021-02-19] MEDS ORDERED: IV NS 0.9% 1,000 ML BAG IV ONE (17:30)
[2021-02-19] MEDS ORDERED: IV NS 0.9% 250 ML IV ONE (17:44)
[2021-02-19] MEDS ORDERED: IOHEXOL-300 100 ML VIAL IV ONE (17:44)
--- NOTE | 2021-02-19 17:48 | NUR ---
75 years old male presents to er c/o nausea vomiting, no acute distress noted vital stable will continue to monitor.
[2021-02-19] MEDS ORDERED: ONDANSETRON HCL/PF 4 MG/2 ML VIAL ONE (17:50)
[2021-02-19] MEDS ORDERED: MORPHINE SULFATE INJ 4 MG/ML DISP.SYRIN ONE (17:51)
[2021-02-19 18:23] LABS: BASOPHILS % (AUTO) 0.5 % (0.0-2.0); EOSINOPHILS % (AUTO) 7.2 % (0.0-6.0); HEMATOCRIT 38 % (39-51); HEMOGLOBIN 12.6 g/dL (13.5-17.5); LYMPHOCYTES # (AUTO) 0.9 K/uL (0.8-4.8); LYMPHOCYTES % (AUTO) 27.9 % (20.0-44.0); MEAN CORPUSCULAR HGB CONC 34 g/dl (31.0-36.0); MEAN CORPUSCULAR VOLUME 95 fL (80-96); MONOCYTES # (AUTO) 0.4 K/uL (0.1-1.30); MONOCYTES % (AUTO) 12.8 % (2.0-12.0); NEUTROPHILS # (AUTO) 1.6 K/uL (1.8-8.9); NEUTROPHILS % (AUTO) 51.6 % (43.0-81.0); RED BLOOD CELL COUNT(AUTO) 3.94 MIL/uL (4.5-6.0); WHITE BLOOD COUNT (AUTO) 3.2 K/uL (4.3-11.0)
[2021-02-19 18:34] LABS: CALCIUM, SERUM 8.2 mg/dL (8.5-10.1); CREATININE 0.9 mg/dL (0.6-1.3); POTASSIUM 3.7 mmol/L (3.5-5.1)
[2021-02-19 18:39] LABS: ALBUMIN 2.9 g/dL (3.4-5.0); BILIRUBIN,DIRECT 0.3 mg/dL (0.0-0.2); BILIRUBIN,TOTAL 0.7 mg/dL (0.2-1.0); TOTAL PROTEIN, SERUM 6.6 g/dL (6.4-8.2)
--- NOTE | 2021-02-19 18:56 | NUR ---
[facility] ocular care technologist [phone]
[2021-02-19 19:18] LABS: EOSINOPHILS % (MANUAL) 15 % (0-4); LYMPHOCYTES % (MANUAL) 28 % (16-48); MONOCYTES % (MANUAL) 10 % (0-11.0); NEUTROPHILS % (MANUAL) 47 (42-76)
--- NOTE | 2021-02-19 19:19 | NUR ---
report endorsed to incoming RN all questions answered.
[2021-02-19 19:20] LABS: PLATELET COUNT (AUTO) 64 K/uL (150-450)
[2021-02-19] MEDS ORDERED: KETOROLAC TROMETHAMINE INJ 30 MG/ML VIAL IV ONE (21:00)
[2021-02-19] MEDS ORDERED: KETOROLAC TROMETHAMINE 15 MG/ML VIAL ONE (21:09)
--- NOTE | 2021-02-19 21:09 | NUR ---
[place] TALKING TO DR. SIM REGARDING PT ADMISSION.
--- NOTE | 2021-02-19 21:18 | NUR ---
COVID SWAB COLLECTE AND SESNT TO LAB
--- NOTE | 2021-02-19 23:14 | NUR ---
PT WAS TRANSFERRED TO THE THIRD FLOOR IN STABLE CONDITION
[2021-02-19 23:20] VITALS: BP 137/96
--- NOTE | 2021-02-19 23:20 | NUR ---
MS/RN ADMITTING NOTE RECEIVED REPORT FROM STACKER DRIVER CHAS. PATIENT ARRIVED TO UNIT AMBULATING WITH ONE STAFF MEMBER. PATIENT ACCOMPANIED TO ROOM 309-2. PATIENT IS BEING ADMITTED FOR DX OF ABDOMINAL PAIN. PMHX INCLUDES CKD, HTN, ANXIETY, HX RIGHT KNEE SX, AND HX OF LEFT SHOULDER SX. PATIENT IS ALERT AND ORIENTED X 4. ABLE TO MAKE NEEDS KNOWN. DENIES PAIN AT THIS TIME. CONTINUES ON ROOM AIR WITH NO S/SX OF RESPIRATORY DISTRESS NOTED. IV ACCESS TO RIGHT WRIST #20G INTACT, PATENT AND SALINE LOCKED. PATIENT IS AMBULATORY WITH STEADY GAIT. SKIN CHECK PERFORMED WITH RASHES NOTED TO BILATERAL UPPER EXTREMITIES. PICTURES TAKEN AND PLACED IN CHART. PATIENT TO BE NPO AT MIDNIGHT FOR HIDA SCAN IN AM. PATIENT AWARE AND AGREEABLE. ORIENTED PATIENT TO ROOM, CALL LIGHT AND UNIT. CALL LIGHT WITHIN REACH. ASPIRATION, FALL AND SAFETY PRECAUTIONS MAINTAINED. WILL CONTINUE TO MONITOR.
[2021-02-19 23:30] VITALS: BP 137/96
[2021-02-19] MEDS ORDERED: ALPR0.5T PO (23:44)
[2021-02-20] MEDS ORDERED: IV D5/ 0.9% NACL 1,000 ML IV PRN
[2021-02-20] MEDS ORDERED: ACETAMINOPHEN 650 MG/SUPP.RECT RC PRN
[2021-02-20] MEDS ORDERED: KETOROLAC TROMETHAMINE INJ 30 MG/ML VIAL IV PRN
[2021-02-20] MEDS: ALPRAZOLAM 1 MG TABLET PO PRN ×2 (00:21→23:07)
[2021-02-20] MEDS: PANTOPRAZOLE 40 MG VIAL IV SCH ×2 (00:21→23:07)
[2021-02-20 06:16] LABS: BASOPHILS % (AUTO) 0.6 % (0.0-2.0); EOSINOPHILS % (AUTO) 6.9 % (0.0-6.0); HEMATOCRIT 36 % (39-51); LYMPHOCYTES # (AUTO) 0.9 K/uL (0.8-4.8); LYMPHOCYTES % (AUTO) 39.1 % (20.0-44.0); MEAN CORPUSCULAR HGB CONC 33 g/dl (31.0-36.0); MEAN CORPUSCULAR VOLUME 96 fL (80-96); MONOCYTES # (AUTO) 0.4 K/uL (0.1-1.30); MONOCYTES % (AUTO) 15.4 % (2.0-12.0); NEUTROPHILS # (AUTO) 0.9 K/uL (1.8-8.9); PLATELET COUNT (AUTO) 62 K/uL (150-450); RED BLOOD CELL COUNT(AUTO) 3.76 MIL/uL (4.5-6.0); WHITE BLOOD COUNT (AUTO) 2.4 K/uL (4.3-11.0)
--- NOTE | 2021-02-20 06:20 | NUR ---
MS/RN CLOSING NOTE PATIENT CURRENTLY SLEEPING IN BED. ALERT AND ORIENTED X 4. ABLE TO MAKE NEEDS KNOWN. DENIES PAIN AT THIS TIME. CONTINUES ON ROOM AIR WITH NO S/SX OF RESPIRATORY DISTRESS NOTED. IV ACCESS TO RIGHT WRIST #20G INTACT AND PATENT. CONTINUES ON IV D5W @ 75ML/HR. CONTINUES ON NPO STATUS FOR HIDA SCAN. PATIENT DENIES NAUSEAS OR VOMITING AT THIS TIME. CALL LIGHT WITHIN REACH. ASPIRATION, FALL AND SAFETY PRECAUTIONS MAINTAINED. WILL ENDORSE PLAN OF CARE TO ONCOMING SHIFT.
[2021-02-20 06:39] LABS: ALBUMIN 2.7 g/dL (3.4-5.0); BILIRUBIN,TOTAL 0.9 mg/dL (0.2-1.0); CALCIUM, SERUM 7.9 mg/dL (8.5-10.1); POTASSIUM 3.8 mmol/L (3.5-5.1); TOTAL PROTEIN, SERUM 6.2 g/dL (6.4-8.2)
[2021-02-20] MEDS ORDERED: KETOROLAC TROMETHAMINE INJ 30 MG/ML VIAL ONE (06:49)
[2021-02-20 08:00] VITALS: BP 111/72
[2021-02-20] MEDS ORDERED: ALBU2TAB4 PO (08:09)
--- NOTE | 2021-02-20 08:24 | NUR ---
m/s returns supervisor: notes dr. lynne notified re: home meds with order to continue home meds. methadone dose already confirmed and faxed to pharmacy.
[2021-02-20] MEDS: METHADONE HCL 10 MG TABLET PO SCH (08:56)
[2021-02-20] MEDS: ATENOLOL 25 MG TABLET PO SCH (08:56)
--- NOTE | 2021-02-20 10:40 | NUR ---
m/s loftsman/woman: md visit seen by dr. lynne at this time and then taken down for hida scan via wheelchair.
[2021-02-20 13:08] LABS: EOSINOPHILS % (MANUAL) 5 % (0-4); LYMPHOCYTES % (MANUAL) 43 % (16-48); MONOCYTES % (MANUAL) 9 % (0-11.0); NEUTROPHILS % (MANUAL) 43 (42-76)
--- NOTE | 2021-02-20 13:10 | NUR ---
m/s geochemist: notes pt back from hida scan. clear liquid diet ordered.
[2021-02-20] MEDS: ALBUTEROL SULFATE 2 MG TABLET PO SCH (13:34)
[2021-02-20] MEDS: ALPRAZOLAM 0.5 MG TABLET PO SCH ×2 (13:34→17:00)
--- NOTE | 2021-02-20 15:00 | NUR ---
m/s mattress stripper: notes hida scan resulted: Decreased ejection fraction of the gallbladder. relayed results to dr. lynne.
[2021-02-20 16:00] VITALS: BP 137/70
--- NOTE | 2021-02-20 17:33 | NUR ---
m/s sheet heater helper: notes pt refused to take xanax early, wants it at 1130 pm. pt has prn xanax and aware.
--- NOTE | 2021-02-20 18:19 | NUR ---
m/s supervisor insecticide: notes lying quietly in bed. no distress noted. needs attended. will continue to monitor.
[2021-02-20] MEDS: ACETAMINOPHEN 325 MG TABLET PO PRN (18:33)
--- NOTE | 2021-02-20 19:14 | NUR ---
m/s evp marketing: notes report given to chandrakant ([email or web address]) for continuity of care.
[2021-02-20 20:00] VITALS: BP 137/85
--- NOTE | 2021-02-20 20:17 | NUR ---
MS RN Opening Notes Patient was last seen awake resting in bed. Patient is alert and oriented x4. Patient's on room air and in no respiratory distress noted. Patient has an IV access on his right wrist gauge #20, which is intact, patent, and flushing well. Safety measures in place: Bed locked, side rails up x2, and call light within reach of the patient. Will continue to monitor the patient.
--- NOTE | 2021-02-20 23:00 | NUR ---
MS RN Notes Patient refused to have his ordered IV fluid (D5NS at 75ml/hour) running until he wakes up in the morning during the daytime. Risks of not receiving his ordered IV fluids have been explained to the patient. Will endorse to the day shift nurse.
--- NOTE | 2021-02-21 06:50 | NUR ---
MS RN Closing Notes Patient was last seen sleeping in bed. Patient is alert and oriented x4. Patient's on room air and in no respiratory distress noted. Patient has an IV access on his right wrist gauge #20, which is intact, patent, and flushing well. Safety measures in place: Bed locked, side rails up x2, and call light within reach of the patient. Will endorse care to the day shift nurse.
[2021-02-21 07:32] LABS: CALCIUM, SERUM 8.2 mg/dL (8.5-10.1); CREATININE 0.9 mg/dL (0.6-1.3); MAGNESIUM 1.8 mg/dL (1.8-2.4); POTASSIUM 3.9 mmol/L (3.5-5.1)
[2021-02-21 08:00] VITALS: BP 165/80
--- NOTE | 2021-02-21 08:07 | NUR ---
MSRN OPENING NOTES Patient was last seen sleeping in bed. Patient is alert and oriented x4. Patient's on room air and in no respiratory distress noted. Patient has an IV access on his right wrist gauge #20, which is intact, patent, and flushing well. Safety measures in place: Bed lockeD IN LOW POSITION SIDE RAILS ARE UP , CALL LIGHT WITHIN EASY REACH AND ANSWERED PROMPTLY.
[2021-02-21] MEDS: ATENOLOL 25 MG TABLET PO SCH (08:38)
[2021-02-21] MEDS: ALPRAZOLAM 0.5 MG TABLET PO SCH (08:39)
[2021-02-21] MEDS: ALBUTEROL SULFATE 2 MG TABLET PO SCH (08:39)
[2021-02-21] MEDS: METHADONE HCL 10 MG TABLET PO SCH (08:39)
[2021-02-21 16:00] VITALS: BP 152/94
[2021-02-21] MEDS: ALPRAZOLAM 1 MG TABLET PO SCH (16:07)
--- NOTE | 2021-02-21 19:09 | NUR ---
MS RN Opening Notes Patient was last seen awake resting in bed. Patient is alert and oriented x4. Patient's on room air and in no respiratory distress noted. Patient has a left upper arm midline gauge #18, which is intact, patent, and flushing well. Safety measures in place: Bed locked, side rails up x2, and call light within reach of the patient. Will continue to monitor the patient.
[2021-02-21 20:00] VITALS: BP 133/73
[2021-02-21] MEDS: ALPRAZOLAM 1 MG TABLET PO PRN (22:54)
[2021-02-22 06:21] LABS: BASOPHILS % (AUTO) 0.7 % (0.0-2.0); EOSINOPHILS % (AUTO) 7.7 % (0.0-6.0); HEMATOCRIT 38 % (39-51); HEMOGLOBIN 12.6 g/dL (13.5-17.5); LYMPHOCYTES # (AUTO) 0.9 K/uL (0.8-4.8); LYMPHOCYTES % (AUTO) 36.2 % (20.0-44.0); MEAN CORPUSCULAR HGB CONC 34 g/dl (31.0-36.0); MEAN CORPUSCULAR VOLUME 96 fL (80-96); MONOCYTES # (AUTO) 0.3 K/uL (0.1-1.30); MONOCYTES % (AUTO) 13.8 % (2.0-12.0); NEUTROPHILS % (AUTO) 41.6 % (43.0-81.0); PLATELET COUNT (AUTO) 61 K/uL (150-450); RED BLOOD CELL COUNT(AUTO) 3.94 MIL/uL (4.5-6.0); WHITE BLOOD COUNT (AUTO) 2.4 K/uL (4.3-11.0)
[2021-02-22 06:37] LABS: CALCIUM, SERUM 8.5 mg/dL (8.5-10.1); CREATININE 0.9 mg/dL (0.6-1.3); POTASSIUM 3.7 mmol/L (3.5-5.1)
--- NOTE | 2021-02-22 07:28 | NUR ---
MS RN OPENING NOTES RECEIVED PATIENT RESTING IN BED. PATIENT IS A/O X4. PATIENT IS BREATHING EVENLY AND NONLABORED ON ROOM AIR. PATIENT IS IN NO ACUTE SIGNS OF DISTRESS. PATIENT DOES NOT COMPLAIN OF PAIN AT THIS TIME. PATIENT HAS IV ACCESS ON BARBRA MIDLINE # 18 RUNNING D5 NS @ 75 ML/HR. SAFETY MEASURES ARE IN PLACE, BED LOW LOCKED CALL LIGHT WITHIN REACH. WILL CONTINUE TO MONITOR
[2021-02-22 08:00] VITALS: BP 164/98
[2021-02-22] MEDS: METHADONE HCL 10 MG TABLET PO SCH (08:10)
[2021-02-22] MEDS: PANTOPRAZOLE 40 MG TABLET.DR PO SCH (08:10)
[2021-02-22] MEDS: ATENOLOL 25 MG TABLET PO SCH (08:11)
[2021-02-22] MEDS: ALPRAZOLAM 1 MG TABLET PO SCH ×2 (08:11→16:28)
[2021-02-22] MEDS: ALBUTEROL SULFATE 2 MG TABLET PO SCH (08:12)
[2021-02-22 10:34] LABS: EOSINOPHILS % (MANUAL) 7 % (0-4); LYMPHOCYTES % (MANUAL) 36 % (16-48); MONOCYTES % (MANUAL) 14 % (0-11.0); NEUTROPHILS % (MANUAL) 43 (42-76)
--- NOTE | 2021-02-22 12:00 | NUR ---
RN NOTE MRI PROCEDURE ORDERED. RISK AND BENEFITS EXPLAINED TO PATIENT. PATIENT IS AGREEABLE TO PROCEDURE. CHECKLIST AND CONSENT IN CHART. PATIENT PLACED ON NPO. WILL CONTINUE TO MONITOR
[2021-02-22] MEDS: POLYETHYLENE GLYCOL 3350 17 GM POWD.PACK PO SCH ×2 (15:00→21:43)
--- NOTE | 2021-02-22 15:38 | NUR ---
RN NOTE PATIENT IS NPO PRIOR TO MRI PROCEDURE, MD NOTIFIED, OKAY TO HOLD MEDICATION TILL THIS EVENINGS DOSE. WILL CONTINUE TO MONITOR
[2021-02-22 16:00] VITALS: BP 157/95
--- NOTE | 2021-02-22 18:38 | NUR ---
MS RN CLOSING NOTES PATIENT RESTING IN BED. PATIENT IS A/O X4. PATIENT IS BREATHING EVENLY AND NONLABORED ON ROOM AIR. PATIENT IS IN NO ACUTE SIGNS OF DISTRESS. PATIENT DOES NOT COMPLAIN OF PAIN AT THIS TIME. PATIENT HAS IV ACCESS ON BARBRA MIDLINE # 18 RUNNING D5 NS @ 75 ML/HR. PATIENT IS POST MRI PROCEDURE WITH CONTRAST. ALL MEDICATIONS GIVEN ORDERED. SAFETY MEASURES ARE IN PLACE, BED LOW LOCKED CALL LIGHT WITHIN REACH. WILL ENDORSE TO ONCOMING SHIFT
--- NOTE | 2021-02-22 19:30 | NUR ---
MS RN OPENING NOTES RECEIVED PATIENT IN BED, AWAKE, PATIENT IS A/O X4. NOT IN ANY FORM OF ACUTE DISTRESS NOTED. PATIENT IS BREATHING EVENLY AND NONLABORED ON ROOM AIR. NO COMPLAIN OF PAIN AT THIS TIME. PATIENT HAS IV ACCESS ON BARBRA MIDLINE #18 RUNNING D5 NS @ 75 ML/HR., INFUSING WELL, NO REDNESS, NO S/SX OF INFILTRATION NOTED. SAFETY MEASURES ARE IN PLACE, BED ON LOWEST LOCKED POSITION, CALL LIGHT WITHIN EASY REACH. WILL CONTINUE TO MONITOR PATIENT'S CURRENT STATUS.
[2021-02-22 20:00] VITALS: BP 140/73
[2021-02-22] MEDS: ACETAMINOPHEN 325 MG TABLET PO PRN (20:53)
[2021-02-22] MEDS: ALPRAZOLAM 1 MG TABLET PO PRN (21:49)
--- NOTE | 2021-02-23 06:27 | NUR ---
MS RN CLOSING NOTES PATIENT IN BED, AWAKE, PATIENT IS A/O X4. NOT IN ANY FORM OF ACUTE DISTRESS NOTED. PATIENT IS BREATHING EVENLY AND UNLABORED ON ROOM AIR. NO COMPLAINTS OF PAIN AT THIS TIME. PATIENT HAS IV ACCESS ON BARBRA MIDLINE #18, PATENT AND FLUSHES WELL. NO REDNESS, NO S/SX OF INFILTRATION NOTED. SAFETY MEASURES ARE IN PLACE AND MAINTAINED DURING THE SHIFT, BED ON LOWEST LOCKED POSITION, CALL LIGHT WITHIN EASY REACH. ALL NEEDS ATTENDED AND MET. WILL ENDORSE TO MORNING NURSE FOR BETTINA.
[2021-02-23] MEDS: ACETAMINOPHEN 325 MG TABLET PO PRN ×2 (06:58→22:30)
[2021-02-23] MEDS: PANTOPRAZOLE 40 MG TABLET.DR PO SCH (07:02)
[2021-02-23 08:00] VITALS: BP 113/86
--- NOTE | 2021-02-23 08:00 | NUR ---
MS RN OPENING NOTES RECEIVED PATIENT AWAKE, STANDING IN HALLWAY WITH FIELD SERVICER. A/O X4. STABLE ON ROOM AIR - NO SOB NOTED, NO DISTRESS/DISCOMFORT NOTED. NO COMPLAINTS OF PAIN AT THIS TIME. IV ACCESS TO LEFT UPPER ARM - MIDLINE - S/L. PATIENT REFUSES D5 NS @ 75 ML/HR BECAUSE HE LIKES TO WALK FREQUENTLY. SAFETY MEASURES IMPLEMENTED. CALL LIGHT WITHIN REACH. WILL CONTINUE TO MONITOR.
[2021-02-23 08:14] VITALS: BP 136/88
[2021-02-23] MEDS: METHADONE HCL 10 MG TABLET PO SCH (08:32)
[2021-02-23] MEDS: ALBUTEROL SULFATE 2 MG TABLET PO SCH (08:32)
[2021-02-23] MEDS: ATENOLOL 25 MG TABLET PO SCH (08:32)
[2021-02-23] MEDS: ALPRAZOLAM 1 MG TABLET PO SCH ×2 (08:32→16:34)
[2021-02-23] MEDS ORDERED: LIDOCAINE 1% INJ 50 ML MDV IJ ONE (09:33)
[2021-02-23] MEDS ORDERED: ANESTHESIA TRAY IN PYXIS 1 EA TRAY MC ONE (09:33)
[2021-02-23] MEDS ORDERED: BUPIVACAINE MPF 0.5% W/EPI INJ 30 ML VIAL ONE (09:33)
[2021-02-23] MEDS ORDERED: GADOTERATE MEGLUMINE 10 MMOL/20 ML VIAL IV ONE (11:20)
[2021-02-23 16:00] VITALS: BP 113/76
[2021-02-23 16:23] VITALS: BP 163/96
[2021-02-23] MEDS: ENSURE CLEAR 237 ML LIQUID (MIX BERRY) PO SCH (17:36)
--- NOTE | 2021-02-23 18:43 | NUR ---
MS RN CLOSING NOTES PATIENT CURRENTLY LYING IN BED, AWAKE, WATCHING TV. A/O X4. STABLE ON ROOM AIR - NO SOB NOTED, NO DISTRESS/DISCOMFORT NOTED. NO COMPLAINTS OF PAIN AT THIS TIME. PATIENT WAS SUPPOSED TO GO TO SURGERY TODAY BUT LABS WERE NOT STABLE ENOUGH - POSTPONED FOR NOW. IV ACCESS TO LEFT UPPER ARM - MIDLINE - S/L. PATIENT REFUSES D5 NS @ 75 ML/HR BECAUSE HE LIKES TO WALK FREQUENTLY. SAFETY MEASURES IMPLEMENTED. CALL LIGHT WITHIN REACH. WILL ENDORSE TO RECREATION MANAGER NURSE FOR BETTINA.
--- NOTE | 2021-02-23 19:37 | NUR ---
MS RN OPENING NOTES RECEIVED PATIENT IN BED, AWAKE, PATIENT IS A/O X4. NOT IN ANY FORM OF ACUTE DISTRESS NOTED. PATIENT IS BREATHING EVENLY AND UNLABORED ON ROOM AIR. NO COMPLAINTS OF PAIN AT THIS TIME. PATIENT HAS IV ACCESS ON BARBRA MIDLINE #18, PATENT AND FLUSHES WELL. NO REDNESS, NO S/SX OF INFILTRATION NOTED. SAFETY MEASURES ARE IN PLACE: BED ON LOWEST LOCKED POSITION, CALL LIGHT WITHIN EASY REACH. ON CLEAR LIQUIDS DIET. WILL CONTINUE TO MONITOR PATIENT'S CURRENT STATUS.
[2021-02-23 20:00] VITALS: BP_SYST 145; BP_SYST 150; BP_DIAS 79; BP_DIAS 93
[2021-02-23] MEDS: POLYETHYLENE GLYCOL 3350 17 GM POWD.PACK PO SCH (22:09)
[2021-02-23] MEDS: ALPRAZOLAM 1 MG TABLET PO PRN (22:53)
--- NOTE | 2021-02-24 06:29 | NUR ---
MS RN CLOSING NOTES PATIENT IN BED, AWAKE, PATIENT IS A/O X4. NOT IN ANY FORM OF ACUTE DISTRESS NOTED. PATIENT IS BREATHING EVENLY AND UNLABORED ON ROOM AIR. NO COMPLAINTS OF PAIN AT THIS TIME. PATIENT HAS IV ACCESS ON BARBRA MIDLINE #18, PATENT AND FLUSHES WELL. NO REDNESS, NO S/SX OF INFILTRATION NOTED. SAFETY MEASURES ARE IN PLACE: BED ON LOWEST LOCKED POSITION, CALL LIGHT WITHIN EASY REACH. ON CLEAR LIQUIDS DIET. ALL NEEDS ATTENDED AND MET, WILL ENDORSE TO MORNING NURSE FOR BETTINA.
[2021-02-24 07:07] LABS: BASOPHILS % (AUTO) 0.4 % (0.0-2.0); EOSINOPHILS % (AUTO) 6.6 % (0.0-6.0); HEMATOCRIT 38 % (39-51); HEMOGLOBIN 12.8 g/dL (13.5-17.5); LYMPHOCYTES % (AUTO) 34.8 % (20.0-44.0); MEAN CORPUSCULAR HGB CONC 34 g/dl (31.0-36.0); MEAN CORPUSCULAR VOLUME 95 fL (80-96); MONOCYTES # (AUTO) 0.4 K/uL (0.1-1.30); MONOCYTES % (AUTO) 14.3 % (2.0-12.0); NEUTROPHILS # (AUTO) 1.2 K/uL (1.8-8.9); NEUTROPHILS % (AUTO) 43.9 % (43.0-81.0); PLATELET COUNT (AUTO) 53 K/uL (150-450); RED BLOOD CELL COUNT(AUTO) 3.94 MIL/uL (4.5-6.0); WHITE BLOOD COUNT (AUTO) 2.8 K/uL (4.3-11.0)
[2021-02-24 07:19] LABS: CALCIUM, SERUM 8.6 mg/dL (8.5-10.1); CREATININE 0.8 mg/dL (0.6-1.3); MAGNESIUM 2.2 mg/dL (1.8-2.4); POTASSIUM 3.6 mmol/L (3.5-5.1)
[2021-02-24 08:00] VITALS: BP 167/95
[2021-02-24 08:23] LABS: EOSINOPHILS % (MANUAL) 6 % (0-4); LYMPHOCYTES % (MANUAL) 32 % (16-48); MONOCYTES % (MANUAL) 11 % (0-11.0); NEUTROPHILS % (MANUAL) 51 (42-76)
[2021-02-24] MEDS: ALPRAZOLAM 1 MG TABLET PO SCH ×2 (08:28→16:31)
[2021-02-24] MEDS: METHADONE HCL 10 MG TABLET PO SCH (08:29)
[2021-02-24] MEDS: ATENOLOL 25 MG TABLET PO SCH (08:29)
[2021-02-24] MEDS: PANTOPRAZOLE 40 MG TABLET.DR PO SCH (08:29)
[2021-02-24] MEDS: ALBUTEROL SULFATE 2 MG TABLET PO SCH (08:29)
[2021-02-24] MEDS: ENSURE CLEAR 237 ML LIQUID (MIX BERRY) PO SCH ×3 (09:06→16:31)
[2021-02-24] MEDS: AMLODIPINE BESYLATE 5 MG TABLET PO SCH (12:04)
[2021-02-24 16:00] VITALS: BP 150/93
[2021-02-24] MEDS: ACETAMINOPHEN 325 MG TABLET PO PRN (16:49)
--- NOTE | 2021-02-24 19:17 | NUR ---
MS RN CLOSING NOTE PATIENT CURRENTLY LYING IN BED, AWAKE, WATCHING TV. A/O X4. STABLE ON ROOM AIR - NO SOB NOTED, NO DISTRESS/DISCOMFORT NOTED. NO COMPLAINTS OF PAIN AT THIS TIME. IV ACCESS TO LEFT UPPER ARM - MIDLINE - S/L. PATIENT REFUSES D5 NS @ 75 ML/HR BECAUSE HE LIKES TO WALK FREQUENTLY. SAFETY MEASURES IMPLEMENTED. CALL LIGHT WITHIN REACH. WILL ENDORSE TO SENIOR JAVA SOFTWARE DEVELOPER NURSE FOR BETTINA.
--- NOTE | 2021-02-24 19:30 | NUR ---
MS RN NOTES PATIENT RECEIVED LYING IN BED, AWAKE, WATCHING TV. A/O X4. STABLE ON ROOM AIR - NO SOB NOTED, NO DISTRESS/DISCOMFORT NOTED. NO COMPLAINTS OF PAIN AT THIS TIME. IV ACCESS TO LEFT UPPER ARM - MIDLINE - S/L. PATIENT REFUSES D5 NS @ 75 ML/HR BECAUSE HE LIKES TO WALK FREQUENTLY. SAFETY MEASURES IMPLEMENTED. CALL LIGHT WITHIN REACH. WILL CONTINUE TO MONITOR.
[2021-02-24 20:00] VITALS: BP 175/101
[2021-02-24] MEDS ORDERED: hydrALAZINE HCL IV 20 MG VIAL IV PRN (21:30)
[2021-02-24] MEDS ORDERED: GUAIFENESIN/CODEINE 10 ML UDC PO PRN (21:30)
[2021-02-24] MEDS: POLYETHYLENE GLYCOL 3350 17 GM POWD.PACK PO SCH (21:59)
--- NOTE | 2021-02-24 22:04 | NUR ---
MS RN NOTES PTS PRN COUGH MEDICATION GIVEN DUE TO PT REQUEST PT TOLERATED MEDICATION WELL. PT SBP 175/101 REPORTED TO OPEN HEARTH HELPER MD WITH ORDERS FOR BP MED. MED GIVEN PT TOLERATED WELL WILL CONTINUE TO MONITOR.
[2021-02-24] MEDS: ALPRAZOLAM 1 MG TABLET PO PRN (22:54)
[2021-02-25 04:00] VITALS: BP 155/92
[2021-02-25] MEDS ORDERED: BISACODYL SUPP (10 MG) 10 MG/SUPP.RECT SUPP.RECT RC ONE (05:00)
[2021-02-25] MEDS: ACETAMINOPHEN 325 MG TABLET PO PRN (05:20)
--- NOTE | 2021-02-25 05:25 | NUR ---
MS RN NOTES PT REPORTED HAVING CONSTIPATION DESPITE HAVING HS MIRALAX DULCOLAX SUPPOSITORY ORDERED AND GIVEN TO THE PT . PT ALSO ASKED FOR TYLENOTL FOR PAIN 3/10 ON ANUMERIC PAIN SCALE. WILL CONTINUE TO MONITOR.
--- NOTE | 2021-02-25 06:44 | NUR ---
MS RN NOTES PATIENT IS LYING IN BED, AWAKE, WATCHING TV. A/O X4. STABLE ON ROOM AIR - NO SOB NOTED, NO DISTRESS/DISCOMFORT NOTED. NO COMPLAINTS OF PAIN AT THIS TIME. IV ACCESS TO LEFT UPPER ARM - MIDLINE - S/L. PATIENT REFUSES D5 NS @ 75 ML/HR BECAUSE HE LIKES TO WALK FREQUENTLY. SAFETY MEASURES IMPLEMENTED. CALL LIGHT WITHIN REACH. WILL ENDORSE CARE TO DAY SHIFT NURSE.
--- NOTE | 2021-02-25 07:20 | NUR ---
MS RN OPENING NOTES RECEIVED PATIENT RESTING IN BED. PATIENT IS A/O X4. PATIENT IS BREATHING EVENLY AND NONLABORED ON ROOM AIR. PATIENT IS IN NO ACUTE SIGNS OF DISTRESS. PATIENT DOES NOT COMPLAIN OF PAIN AT THIS TIME. PATIENT HAS IV ACCESS ON BARBRA MIDLINE # 18 PATENT AND INTACT. SAFETY MEASURES ARE IN PLACE, BED LOW LOCKED CALL LIGHT WITHIN REACH. WILL CONTINUE TO MONITOR
[2021-02-25 08:00] VITALS: BP 141/95
[2021-02-25] MEDS: AMLODIPINE BESYLATE 5 MG TABLET PO SCH (08:05)
[2021-02-25] MEDS: ALBUTEROL SULFATE 2 MG TABLET PO SCH (08:05)
[2021-02-25] MEDS: ALPRAZOLAM 1 MG TABLET PO SCH ×2 (08:05→16:06)
[2021-02-25] MEDS: PANTOPRAZOLE 40 MG TABLET.DR PO SCH (08:05)
[2021-02-25] MEDS: METHADONE HCL 10 MG TABLET PO SCH (08:05)
[2021-02-25] MEDS: ATENOLOL 25 MG TABLET PO SCH (08:05)
[2021-02-25] MEDS: ENSURE CLEAR 237 ML LIQUID (MIX BERRY) PO SCH ×3 (08:06→16:06)
[2021-02-25] MEDS ORDERED: AMLODIPINE BESYLATE 5 MG TABLET PO SCH (09:00)
[2021-02-25] MEDS ORDERED: AMLODIPINE BESYLATE 5 MG TABLET PO ONE (09:30)
--- NOTE | 2021-02-25 11:00 | NUR ---
RN NOTE PATIENT COMPLAINED OF PAIN, METHADONE NOT HELPING. MD GAVE NEW ORDER FOR NORCO 5/325MG Q4HRS PRN NOTED AND CARRIED OUT. WILL CONTINUE TO MONITOR
[2021-02-25] MEDS: HYDROCODONE/APAP 5/325MG TABLET PO PRN ×3 (11:16→22:23)
[2021-02-25 16:00] VITALS: BP 151/78
--- NOTE | 2021-02-25 16:12 | NUR ---
RN NOTE PATIENT COMPLAINED OF PAIN 7/10 ASKED FOR PRN PAIN MEDICATION. VITALS STABLE, PRN PAIN MEDICATION GIVEN ORDERED
--- NOTE | 2021-02-25 18:24 | NUR ---
MS RN CLOSING NOTES PATIENT RESTING IN BED. PATIENT IS A/O X4. PATIENT IS BREATHING EVENLY AND NONLABORED ON ROOM AIR. PATIENT IS IN NO ACUTE SIGNS OF DISTRESS. PATIENT DOES NOT COMPLAIN OF PAIN AT THIS TIME. PATIENT HAS IV ACCESS ON BARBRA MIDLINE # 18 PATENT AND INTACT. ALL MEDICATIONS GIVEN ORDERED. SAFETY MEASURES ARE IN PLACE, BED LOW LOCKED CALL LIGHT WITHIN REACH. WILL ENDORSE TO ONCOMING SHIFT
--- NOTE | 2021-02-25 19:31 | NUR ---
MS RN NOTES PATIENT RESTING IN BED. PATIENT IS A/O X4. PATIENT IS BREATHING EVENLY AND NONLABORED ON ROOM AIR. PATIENT IS IN NO ACUTE SIGNS OF DISTRESS. PATIENT DOES NOT COMPLAIN OF PAIN AT THIS TIME. PATIENT HAS IV ACCESS ON BARBRA MIDLINE # 18 PATENT AND INTACT. SAFETY MEASURES ARE IN PLACE, BED LOW LOCKED CALL LIGHT WITHIN REACH. WILL CONTINUE TO MONITOR.
[2021-02-25 20:00] VITALS: BP 125/74
[2021-02-25] MEDS: POLYETHYLENE GLYCOL 3350 17 GM POWD.PACK PO SCH (21:14)
--- NOTE | 2021-02-25 21:14 | NUR ---
MS RN NOTES PT REFUSED MIRALAX PER PT HE HAS BEEN HAVING MULTIPLE BOWEL MOVEMENTS THROUGH THE DAY. WILL CONTINUE TO MONITOR.
--- NOTE | 2021-02-25 22:23 | NUR ---
MS RN NOTES PT REPORTED GENERALIZED PAIN 7/10 ON ANUMERIC PAIN SCALE PRN NORCO GIVEN AND TOLERATED WELL. WILL CONTINUE TO MONITOR.
[2021-02-25] MEDS: ALPRAZOLAM 1 MG TABLET PO PRN (23:08)
--- NOTE | 2021-02-25 23:08 | NUR ---
MS RN NOTES PT REQUESTED PRN XANAX PT REPORTING ANXIETY. PRN MEDICATION PROVIDED WILL CONTINUE TO MONITOR.
[2021-02-26 06:21] LABS: BASOPHILS % (AUTO) 0.5 % (0.0-2.0); EOSINOPHILS % (AUTO) 5.8 % (0.0-6.0); HEMATOCRIT 36 % (39-51); HEMOGLOBIN 12.4 g/dL (13.5-17.5); LYMPHOCYTES # (AUTO) 0.9 K/uL (0.8-4.8); LYMPHOCYTES % (AUTO) 33.3 % (20.0-44.0); MEAN CORPUSCULAR HGB CONC 34 g/dl (31.0-36.0); MEAN CORPUSCULAR VOLUME 95 fL (80-96); MONOCYTES # (AUTO) 0.4 K/uL (0.1-1.30); MONOCYTES % (AUTO) 14.4 % (2.0-12.0); NEUTROPHILS # (AUTO) 1.3 K/uL (1.8-8.9); PLATELET COUNT (AUTO) 61 K/uL (150-450); RED BLOOD CELL COUNT(AUTO) 3.83 MIL/uL (4.5-6.0); WHITE BLOOD COUNT (AUTO) 2.8 K/uL (4.3-11.0)
--- NOTE | 2021-02-26 06:43 | NUR ---
MS RN NOTES PATIENT RESTING IN BED. PATIENT IS A/O X4. PATIENT IS BREATHING EVENLY AND NONLABORED ON ROOM AIR. PATIENT IS IN NO ACUTE SIGNS OF DISTRESS. PATIENT DOES NOT COMPLAIN OF PAIN AT THIS TIME. PATIENT HAS IV ACCESS ON BARBRA MIDLINE # 18 PATENT AND INTACT. SAFETY MEASURES ARE IN PLACE, BED LOW LOCKED CALL LIGHT WITHIN REACH. WILL ENDORSE CARE TO DAY SHIFT NURSE.
[2021-02-26 07:13] LABS: ALBUMIN 3.1 g/dL (3.4-5.0); BILIRUBIN,TOTAL 0.7 mg/dL (0.2-1.0); CALCIUM, SERUM 8.6 mg/dL (8.5-10.1); CREATININE 0.9 mg/dL (0.6-1.3); POTASSIUM 3.8 mmol/L (3.5-5.1); TOTAL PROTEIN, SERUM 6.6 g/dL (6.4-8.2)
[2021-02-26 08:00] VITALS: BP 135/83
[2021-02-26] MEDS: METHADONE HCL 10 MG TABLET PO SCH (08:09)
[2021-02-26] MEDS: ATENOLOL 25 MG TABLET PO SCH (08:09)
[2021-02-26] MEDS: PANTOPRAZOLE 40 MG TABLET.DR PO SCH (08:10)
[2021-02-26] MEDS: ALPRAZOLAM 1 MG TABLET PO SCH ×2 (08:10→17:23)
[2021-02-26] MEDS: ALBUTEROL SULFATE 2 MG TABLET PO SCH (08:10)
[2021-02-26] MEDS: AMLODIPINE BESYLATE 5 MG TABLET PO SCH (08:10)
[2021-02-26] MEDS: ENSURE CLEAR 237 ML LIQUID (MIX BERRY) PO SCH ×3 (08:15→16:12)
[2021-02-26] MEDS: HYDROCODONE/APAP 5/325MG TABLET PO PRN ×3 (11:31→20:18)
[2021-02-26] MEDS: ALPRAZOLAM 1 MG TABLET PO PRN (14:43)
--- NOTE | 2021-02-26 14:43 | NUR ---
MS RN NOTES PT REQUESTED PRN XANAX PT REPORTING ANXIETY. PRN MEDICATION PROVIDED WILL CONTINUE TO MONITOR.
[2021-02-26 16:00] VITALS: BP 125/74
--- NOTE | 2021-02-26 16:12 | NUR ---
MS RN NOTES PT REPORTED GENERALIZED PAIN 7/10 ON A NUMERIC PAIN SCALE PRN NORCO GIVEN AND TOLERATED WELL. WILL CONTINUE TO MONITOR.
--- NOTE | 2021-02-26 19:40 | NUR ---
MS RN OPENING NOTES RECEIVED PATIENT IN BED, AWAKE, PATIENT IS A/O X4. PATIENT IS ON ROOM AIR TOLERATING WELL, BREATHING EVENLY AND UNLABORED. PATIENT IS IN NO ACUTE SIGNS OF DISTRESS. NO COMPLAIN OF PAIN AT THIS TIME. PATIENT HAS IV ACCESS ON BARBRA MIDLINE # 18 PATENT AND INTACT. SAFETY MEASURES ARE IN PLACE, BED IN LOWEST LOCKED POSITION, CALL LIGHT WITHIN REACH. WILL CONTINUE TO MONITOR CURRENT STATUS.
[2021-02-26 20:00] VITALS: BP 129/78
--- NOTE | 2021-02-26 20:20 | NUR ---
PAIN MANAGEMENT PATIENT HAS C/O OF GENERALIZED WITH PAIN SCALE OF 7/10, DUE NORCO GIVEN ORDERED. WILL CONTINUE TO MONITOR PATIENT'S PAIN STATUS.
[2021-02-26] MEDS: POLYETHYLENE GLYCOL 3350 17 GM POWD.PACK PO SCH (21:29)
[2021-02-27] MEDS: ALPRAZOLAM 1 MG TABLET PO PRN ×2 (00:18→14:30)
[2021-02-27] MEDS: HYDROCODONE/APAP 5/325MG TABLET PO PRN ×4 (00:19→15:34)
--- NOTE | 2021-02-27 00:19 | NUR ---
PAIN MANAGEMENT PATIENT HAS C/O OF GENERALIZED WITH PAIN SCALE OF 7/10, DUE NORCO GIVEN ORDERED. WILL CONTINUE TO MONITOR PATIENT'S PAIN STATUS.
--- NOTE | 2021-02-27 06:31 | NUR ---
MS RN CLOSING NOTES PATIENT IN BED, AWAKE, PATIENT IS A/O X4. PATIENT IS ON ROOM AIR TOLERATING WELL, BREATHING EVEN AND UNLABORED. PATIENT IS IN NO ACUTE SIGNS OF DISTRESS. NO COMPLAINTS OF PAIN AT THIS TIME. PATIENT HAS IV ACCESS ON BARBRA MIDLINE # 18 PATENT AND INTACT, FLUSHES WELL. SAFETY MEASURES ARE IN PLACE AND MAINTAINED DURING THE SHIFT, BED IN LOWEST LOCKED POSITION, CALL LIGHT WITHIN REACH.SIDE RAILS UP X 2. ALL NEEDS ATTENDED AND MET. WILL ENDORSE TO MORNING SHIFT NURSE FOR BETTINA.
[2021-02-27 06:49] LABS: ALBUMIN 3.1 g/dL (3.4-5.0); BILIRUBIN,TOTAL 0.7 mg/dL (0.2-1.0); CALCIUM, SERUM 8.4 mg/dL (8.5-10.1); CREATININE 0.9 mg/dL (0.6-1.3); POTASSIUM 3.7 mmol/L (3.5-5.1); TOTAL PROTEIN, SERUM 6.7 g/dL (6.4-8.2)
--- NOTE | 2021-02-27 07:20 | NUR ---
RN NOTES SEEN PATIENT OOB, AMBULATORY, STEADY GAIT, AWAKE AND VERBALLY RESPONSIVE. A/O X4, ABLE TO MAKE NEEDS KNOWN. BREATHING EVEN AND UNLABORED, TOLERATING ROOM AIR. BARBRA MIDLINE INTACT AND PATENT. REQUESTED FOR BUTTER AND PROVIDED TO PATIENT. SAFETY MEASURES IN PLACE. WILL CONTINUE TO MONITOR.
[2021-02-27 08:00] VITALS: BP 130/88
[2021-02-27] MEDS: ALBUTEROL SULFATE 2 MG TABLET PO SCH (08:16)
[2021-02-27] MEDS: AMLODIPINE BESYLATE 5 MG TABLET PO SCH (08:17)
[2021-02-27] MEDS: PANTOPRAZOLE 40 MG TABLET.DR PO SCH (08:17)
[2021-02-27] MEDS: METHADONE HCL 10 MG TABLET PO SCH (08:17)
[2021-02-27] MEDS: ALPRAZOLAM 1 MG TABLET PO SCH ×2 (08:18→16:44)
[2021-02-27] MEDS: ATENOLOL 25 MG TABLET PO SCH (08:18)
[2021-02-27] MEDS: ENSURE CLEAR 237 ML LIQUID (MIX BERRY) PO SCH ×3 (08:19→16:44)
--- NOTE | 2021-02-27 10:30 | NUR ---
RN NOTES PATIENT SEEN BY DR. SIM TODAY W/ ORDER NOTED.
[2021-02-27] MEDS ORDERED: AMLO-212 PO (10:50)
[2021-02-27] MEDS ORDERED: PANT40TA2 PO (10:50)
[2021-02-27 15:40] VITALS: BP 140/75
--- NOTE | 2021-02-27 16:45 | NUR ---
RN NOTES PATIENT SEEN BY DR. SIM TODAY W/ ORDER FOR DISCHARGE AND FOLLOW UP OUTPATIENT FOR TERTIARY LEVEL OF CARE FOR HEPATOBILIARY SURGERY. DISCHARGE INSTRUCTION AND EDUCATION PROVIDED TO PATIENT. DISCHARGE FORM AND BELONGINGS LIST FORM SIGNED BY PATIENT; ALL BELONGINGS ACCOUNTED FOR. PATIENT REFUSED PHOTO OF SKIN ISSUES TO BE TAKEN. NAME ARMBAND AND MIDLINE REMOVED, NO BLEEDING NOTED. PATIENT PICKED UP BY CAREGIVER VIA PRIVATE CAR. CHARGE NURSE AND MD AWARE OF DISCHARGE.
== END 2021-02-27 16:51 | disposition home or self-care (01) | DRG 445 ==
LOC: ER 16:57 → MED 22:33
PROVIDERS: ADMIT Legal Medicine; ATTEND Legal Medicine
PROC: 05HC33Z Insertion of Infusion Device into Left Basilic Vein, Percutaneous Approach (ICD-10-PCS; principal; 2021-02-21)
DX: K80.12 Calculus of gallbladder with acute and chronic cholecystitis without obstruction (principal); K76.6 Portal hypertension; F11.20 Opioid dependence, uncomplicated; K74.60 Unspecified cirrhosis of liver; F43.10 Post-traumatic stress disorder, unspecified; J44.9 Chronic obstructive pulmonary disease, unspecified; M79.7 Fibromyalgia; K42.9 Umbilical hernia without obstruction or gangrene; K59.00 Constipation, unspecified; K43.9 Ventral hernia without obstruction or gangrene; Z20.822 Contact with and (suspected) exposure to COVID-19; I12.9 Hypertensive chronic kidney disease with stage 1 through stage 4 chronic kidney disease, or unspecified chronic kidney disease; N18.9 Chronic kidney disease, unspecified; Z98.1 Arthrodesis status; Z79.899 Other long term (current) drug therapy; G89.4 Chronic pain syndrome; Z86.19 Personal history of other infectious and parasitic diseases; K82.8 Other specified diseases of gallbladder; K76.89 Other specified diseases of liver
CPT/HCPCS: 36415; 71045-TC; 74183-TC; 76705-TC; 78226; 80048-TC; 80053-TC; 80076-TC; 82105; 82150-TC; 83605-TC; 83690-TC; 83735-TC; 85025-TC; 85610-TC; 86850-TC; 87081-TC; A9537; A9575; C9113; C9803; G0378; J0360; J1885; J2270; J2405; J3490; J7030; J7042; J7050; Q9967

== ENCOUNTER 2022-05-17 09:59 | Outpatient (CLI) | payer MEDICARE, OTHER ==
[~2022-05-17 09:59] MED LIST changes: +ALBU2TAB4 PO; +ALPR0.5T PO; +AMLO-212 PO; -BACL20TA PO; -FURO-145 PO; +PANT40TA2 PO
[2022-05-17] MEDS ORDERED: GENTAMICIN 0.1% CREAM 15 GM TUBE ONE (11:05)
[2022-05-17] MEDS ORDERED: CLOTRIMAZOLE 1% 15 GM TUBE TP ONE (11:05)
== END 2022-05-17 23:59 | disposition home health service (06) ==
LOC: WOU 09:59
PROVIDERS: ATTEND Podiatrist Foot & Ankle Surgery
DX: I87.312 Chronic venous hypertension (idiopathic) with ulcer of left lower extremity (principal); L97.222 Non-pressure chronic ulcer of left calf with fat layer exposed; I87.2 Venous insufficiency (chronic) (peripheral); M62.50 Muscle wasting and atrophy, not elsewhere classified, unspecified site; R26.2 Difficulty in walking, not elsewhere classified; D17.21 Benign lipomatous neoplasm of skin and subcutaneous tissue of right arm; F03.90 Unspecified dementia, unspecified severity, without behavioral disturbance, psychotic disturbance, mood disturbance, and anxiety; I10 Essential (primary) hypertension
CPT/HCPCS: 11042; 11045; 87070-TC; 87075-TC

== ENCOUNTER 2022-05-24 10:00 | Outpatient (CLI) | payer MEDICARE, OTHER ==
[2022-05-24] MEDS ORDERED: GENTAMICIN 0.1% CREAM 15 GM TUBE ONE (10:57)
[2022-05-24] MEDS ORDERED: CLOTRIMAZOLE 1% 15 GM TUBE TP ONE (10:58)
== END 2022-05-24 23:59 | disposition home health service (06) ==
LOC: WOU 10:00
PROVIDERS: ATTEND Podiatrist Foot & Ankle Surgery
DX: I87.312 Chronic venous hypertension (idiopathic) with ulcer of left lower extremity (principal); L97.222 Non-pressure chronic ulcer of left calf with fat layer exposed; I87.2 Venous insufficiency (chronic) (peripheral); D17.21 Benign lipomatous neoplasm of skin and subcutaneous tissue of right arm; R26.2 Difficulty in walking, not elsewhere classified; M62.50 Muscle wasting and atrophy, not elsewhere classified, unspecified site; F03.90 Unspecified dementia, unspecified severity, without behavioral disturbance, psychotic disturbance, mood disturbance, and anxiety
CPT/HCPCS: 11042

== ENCOUNTER 2022-05-31 10:00 | Outpatient (CLI) | payer MEDICARE, OTHER ==
[2022-05-31] MEDS ORDERED: CLOTRIMAZOLE 1% 15 GM TUBE TP ONE (10:30)
[2022-05-31] MEDS ORDERED: UREA 10% -AHA 4% CREAM 57 GM TUBE ONE (10:57)
== END 2022-05-31 23:59 | disposition home health service (06) ==
LOC: WOU 10:00
PROVIDERS: ATTEND Podiatrist Foot & Ankle Surgery
DX: I87.2 Venous insufficiency (chronic) (peripheral) (principal); M62.50 Muscle wasting and atrophy, not elsewhere classified, unspecified site; R26.2 Difficulty in walking, not elsewhere classified; D17.21 Benign lipomatous neoplasm of skin and subcutaneous tissue of right arm; F03.90 Unspecified dementia, unspecified severity, without behavioral disturbance, psychotic disturbance, mood disturbance, and anxiety
CPT/HCPCS: G0463

== ENCOUNTER 2022-07-30 08:40 | Outpatient (CLI) | payer MEDICARE, OTHER | END 2022-07-30 23:59 | disposition home health service (06) | LOC: WOU 08:40 | PROVIDERS: ATTEND Podiatrist Foot & Ankle Surgery | DX: I87.2 Venous insufficiency (chronic) (peripheral) (principal); R60.1 Generalized edema; I10 Essential (primary) hypertension | CPT/HCPCS: G0463 ==

== ENCOUNTER 2022-10-01 08:27 | Outpatient (CLI) | payer MEDICARE, OTHER ==
[2022-10-01] MEDS ORDERED: UREA 10% -AHA 4% CREAM 57 GM TUBE ONE (08:52)
== END 2022-10-01 23:59 | disposition home or self-care (01) ==
LOC: WOU 08:27
PROVIDERS: ATTEND Podiatrist Foot & Ankle Surgery
DX: I87.2 Venous insufficiency (chronic) (peripheral) (principal); R60.1 Generalized edema; L60.3 Nail dystrophy; M20.42 Other hammer toe(s) (acquired), left foot
CPT/HCPCS: G0463

== ENCOUNTER 2022-12-31 09:09 | Outpatient (CLI) | payer MEDICARE, OTHER ==
[2022-12-31 11:40] LABS: BASOPHILS % (AUTO) 0.6 % (0.0-2.0); HEMATOCRIT 41 % (39-51); HEMOGLOBIN 13.5 g/dL (13.5-17.5); LYMPHOCYTES # (AUTO) 1.3 K/uL (0.8-4.8); LYMPHOCYTES % (AUTO) 27.4 % (20.0-44.0); MEAN CORPUSCULAR HGB CONC 33 g/dl (31.0-36.0); MEAN CORPUSCULAR VOLUME 96 fL (80-96); MONOCYTES # (AUTO) 0.6 K/uL (0.1-1.30); MONOCYTES % (AUTO) 12.9 % (2.0-12.0); NEUTROPHILS # (AUTO) 2.7 K/uL (1.8-8.9); NEUTROPHILS % (AUTO) 56.1 % (43.0-81.0); PLATELET COUNT (AUTO) 83 K/uL (150-450); RED BLOOD CELL COUNT(AUTO) 4.24 MIL/uL (4.5-6.0); WHITE BLOOD COUNT (AUTO) 4.9 K/uL (4.3-11.0)
[2022-12-31 12:01] LABS: T4 (THYROXINE) 13.7 ug/dL (4.7-13.3); THYROID STIMULATING HORMONE 1.726 uIU/mL (0.358-3.74)
[2022-12-31 12:21] LABS: ALBUMIN 3.6 g/dL (3.4-5.0); BILIRUBIN,TOTAL 0.9 mg/dL (0.2-1.0); CALCIUM, SERUM 9.3 mg/dL (8.5-10.1); CREATININE 1.1 mg/dL (0.6-1.3); POTASSIUM 4.2 mmol/L (3.5-5.1); TOTAL PROTEIN, SERUM 7.9 g/dL (6.4-8.2)
[2022-12-31 13:01] LABS: EOSINOPHILS % (MANUAL) 5 % (0-4); LYMPHOCYTES % (MANUAL) 24 % (16-48); MONOCYTES % (MANUAL) 8 % (0-11.0); NEUTROPHILS % (MANUAL) 63 (42-76)
== END 2022-12-31 23:59 | disposition home health service (06) ==
LOC: WOU 09:09
PROVIDERS: ATTEND Podiatrist Foot & Ankle Surgery
DX: G90.09 Other idiopathic peripheral autonomic neuropathy (principal); I87.2 Venous insufficiency (chronic) (peripheral); R60.1 Generalized edema; L60.3 Nail dystrophy; M20.42 Other hammer toe(s) (acquired), left foot; G57.53 Tarsal tunnel syndrome, bilateral lower limbs; I10 Essential (primary) hypertension
CPT/HCPCS: 85025; 83036; 85652; 84439; 84443; 82607; 80053; G0463; 84436-TC

== ENCOUNTER 2023-01-31 09:32 | Outpatient (CLI) | payer MEDICARE, OTHER | END 2023-01-31 23:59 | disposition home health service (06) | LOC: WOU 09:32 | PROVIDERS: ATTEND Podiatrist Foot & Ankle Surgery | DX: S80.822A Blister (nonthermal), left lower leg, initial encounter (principal); X58.XXXA Exposure to other specified factors, initial encounter; Y92.89 Other specified places as the place of occurrence of the external cause; I87.2 Venous insufficiency (chronic) (peripheral); L97.221 Non-pressure chronic ulcer of left calf limited to breakdown of skin; L60.3 Nail dystrophy; R60.1 Generalized edema; M20.42 Other hammer toe(s) (acquired), left foot; G57.53 Tarsal tunnel syndrome, bilateral lower limbs | CPT/HCPCS: 29581; A6207 ==

== ENCOUNTER 2024-03-30 09:36 | Emergency (ER) | payer MEDICARE, OTHER ==
[~2024-03-30] VITALS: Ht 185.4 cm; Wt 98.4 kg
[2024-03-30] MEDS ORDERED: TDAP [DIPH/PERTUSSIS/TET] 0.5 ML VIAL IM ONE (09:49)
[2024-03-30] MEDS: IV NS 0.9% 500 ML BAG IV ONE (10:00)
[2024-03-30] MEDS: TDAP [DIPH/PERTUSSIS/TET] 0.5 ML VIAL IM ONE (10:02)
[2024-03-30] MEDS: CEFAZOLIN 1 GM in IV D5W 50 ML IV ONE (10:05)
[2024-03-30 10:18] LABS: BASOPHILS % (AUTO) 0.4 % (0.0-2.0); EOSINOPHILS % (AUTO) 0.2 % (0.0-6.0); HEMATOCRIT 38 % (39-51); HEMOGLOBIN 12.8 g/dL (13.5-17.5); LYMPHOCYTES # (AUTO) 0.8 K/uL (0.8-4.8); LYMPHOCYTES % (AUTO) 18.5 % (20.0-44.0); MEAN CORPUSCULAR HEMOGLOBIN 32 PG (26.0-33.0); MEAN CORPUSCULAR HGB CONC 33 g/dl (31.0-36.0); MEAN CORPUSCULAR VOLUME 96 fL (80-96); MONOCYTES # (AUTO) 0.5 K/uL (0.1-1.30); MONOCYTES % (AUTO) 11.3 % (2.0-12.0); NEUTROPHILS % (AUTO) 69.6 % (43.0-81.0); PLATELET COUNT (AUTO) 69 K/uL (150-450); RED BLOOD CELL COUNT(AUTO) 3.98 MIL/uL (4.5-6.0); RED CELL DISTRIBUTION WIDTH 15.4 % (11.5-15.0); WHITE BLOOD COUNT (AUTO) 4.3 K/uL (4.3-11.0)
[2024-03-30 10:28] LABS: CALCIUM, SERUM 8.5 mg/dL (8.5-10.1); CARBON DIOXIDE 25 mmol/L (21-32); CHLORIDE 102 mmol/L (98-107); CREATININE 0.9 mg/dL (0.6-1.3); GLUCOSE 103 mg/dL (74-106); POTASSIUM 3.6 mmol/L (3.5-5.1); SODIUM SERUM 138 mmol/L (136-145); UREA NITROGEN, BLOOD 13 mg/dL (7-18)
[2024-03-30] MEDS: LIDOCAINE 1%-EPI 1:100,000 50 ML VIAL IJ ONE (10:32)
[2024-03-30 10:43] LABS: APPEARANCE,URINE CLEAR (CLEAR); BILIRUBIN,URINE NEGATIVE (NEGATIVE); BLOOD, URINE NEGATIVE Ery/uL (NEGATIVE); COLOR,URINE YELLOW (YELLOW); KETONES,URINE NEGATIVE (NEGATIVE); LEUKOCYTE ESTERASE ,URINE NEGATIVE (NEGATIVE); NITRITE, URINE NEGATIVE (NEGATIVE); PROTEIN,URINE NEGATIVE (NEGATIVE); UGLUCOSE NEGATIVE (NEGATIVE); UROBILINOGEN,URINE 0.2 EU/dL (0.2)
[2024-03-30] MEDS ORDERED: LIDOCAINE 1%-EPI 1:100,000 20 ML VIAL ONE (11:09)
[2024-03-30 11:46] LABS: BASOPHILS % (MANUAL) 0 % (0.0-2.0); EOSINOPHILS % (MANUAL) 1 % (0-4); LYMPHOCYTES % (MANUAL) 16 % (16-48); MONOCYTES % (MANUAL) 12 % (0-11.0); NEUTROPHILS % (MANUAL) 71 (42-76); PLATELET ESTIMATE DECREASED
[2024-03-30] MEDS ORDERED: CEPH-570 PO (12:17)
[2024-03-30 12:45] VITALS: BP 130/81; TEMP 98; O2SAT 100
== END 2024-03-30 12:46 | disposition home or self-care (01) ==
LOC: ER 09:36
DX: S81.011A Laceration without foreign body, right knee, initial encounter (principal); S80.01XA Contusion of right knee, initial encounter; R51.9 Headache, unspecified; I12.9 Hypertensive chronic kidney disease with stage 1 through stage 4 chronic kidney disease, or unspecified chronic kidney disease; N18.9 Chronic kidney disease, unspecified; Z86.79 Personal history of other diseases of the circulatory system; Z87.09 Personal history of other diseases of the respiratory system; W01.0XXA Fall on same level from slipping, tripping and stumbling without subsequent striking against object, initial encounter; Y93.89 Activity, other specified; Y92.098 Other place in other non-institutional residence as the place of occurrence of the external cause; Y99.8 Other external cause status
CPT/HCPCS: 12002; 36415; 70450; 71045; 73564; 80048; 81003; 84484; 85007; 85025; 90471; 90715; 93005; 96365; 99285; A4223; A6253; J0690; J3490; J7040; J7060

== ENCOUNTER 2024-04-08 14:47 | Emergency (ER) | payer MEDICARE, OTHER ==
[~2024-04-08] VITALS: Ht 185.4 cm; Wt 104.3 kg
[~2024-04-08 14:47] MED LIST changes: +CEPH-570 PO
[2024-04-08 15:28] VITALS: BP 126/74; TEMP 98.3
[2024-04-08 16:26] VITALS: O2SAT 99
== END 2024-04-08 16:26 | disposition home or self-care (01) ==
LOC: ER 14:51
DX: S81.011D Laceration without foreign body, right knee, subsequent encounter (principal); I12.9 Hypertensive chronic kidney disease with stage 1 through stage 4 chronic kidney disease, or unspecified chronic kidney disease; N18.9 Chronic kidney disease, unspecified; Z86.79 Personal history of other diseases of the circulatory system; Z87.09 Personal history of other diseases of the respiratory system; Z48.02 Encounter for removal of sutures; Z86.59 Personal history of other mental and behavioral disorders; X58.XXXD Exposure to other specified factors, subsequent encounter